=== PATIENT | male | born 1960 ===

== ENCOUNTER → 2019-12-25 11:10 | Outpatient (BNVA) | payer MEDICARE, MEDICAID, SELFPAY | PROVIDERS: PCP Internal Medicine; Referring Provider Internal Medicine; Visit Provider Nurse Practitioner Psychiatric/Mental Health | DX: F11.20 Opioid dependence, uncomplicated (principal) | CPT/HCPCS: 80305; 99214 ==

== ENCOUNTER → 2020-01-01 11:40 | Outpatient (BNVA) | payer MEDICARE, MEDICAID, SELFPAY | PROVIDERS: PCP Internal Medicine; Visit Provider Nurse Practitioner Psychiatric/Mental Health | DX: F11.20 Opioid dependence, uncomplicated (principal) | CPT/HCPCS: 99213 ==

== ENCOUNTER → 2020-01-08 13:02 | Outpatient (BNVA) | payer MEDICARE, MEDICAID, SELFPAY | PROVIDERS: Visit Provider Nurse Practitioner Psychiatric/Mental Health | DX: F11.99 Opioid use, unspecified with unspecified opioid-induced disorder (principal); N40.0 Benign prostatic hyperplasia without lower urinary tract symptoms | CPT/HCPCS: 80305; 99211 ==

== ENCOUNTER 2020-01-15 10:31 | Outpatient (REF) | payer MEDICARE, MEDICAID, SELFPAY ==
[2020-01-19 10:16] LABS: Buprenorphine 39 ng/mL; Norbuprenorphine Negative
== END 2020-01-15 10:32 | disposition home or self-care (01) ==
LOC: HO.LNP 10:31
PROVIDERS: Visit Provider Nurse Practitioner Psychiatric/Mental Health
DX: F11.20 Opioid dependence, uncomplicated (principal)
CPT/HCPCS: 80305; 80348; 99211

== ENCOUNTER 2020-01-22 10:13 | Outpatient (REF) | payer MEDICARE, MEDICAID, SELFPAY ==
[2020-01-26 06:21] LABS: Buprenorphine 38 ng/mL; Norbuprenorphine 8 ng/mL
== END 2020-01-22 10:14 | disposition home or self-care (01) ==
LOC: HO.LNP 10:13
PROVIDERS: Visit Provider Nurse Practitioner Psychiatric/Mental Health
DX: F11.20 Opioid dependence, uncomplicated (principal)
CPT/HCPCS: 80305; 80348; 99212

== ENCOUNTER → 2020-01-29 10:32 | Outpatient (BNVA) | payer MEDICARE, MEDICAID, SELFPAY | PROVIDERS: Visit Provider Nurse Practitioner Psychiatric/Mental Health | DX: F11.20 Opioid dependence, uncomplicated (principal) | CPT/HCPCS: 80305; 80348; 99212 ==

== ENCOUNTER 2020-01-29 17:16 | Outpatient (REF) | payer MEDICARE, MEDICAID, SELFPAY ==
[2020-02-01 11:02] LABS: Buprenorphine Negative; Norbuprenorphine Negative
== END 2020-01-29 17:17 | disposition home or self-care (01) ==
LOC: HO.LNP 17:16
PROVIDERS: Visit Provider Nurse Practitioner Psychiatric/Mental Health
DX: Z13.89 Encounter for screening for other disorder (principal)
CPT/HCPCS: 80348

== ENCOUNTER → 2021-11-25 11:55 | Outpatient (BNVA) | payer MEDICAID, SELFPAY | PROVIDERS: PCP Internal Medicine; Visit Provider Urology | DX: N40.1 Benign prostatic hyperplasia with lower urinary tract symptoms (principal); R35.1 Nocturia; R39.11 Hesitancy of micturition; R35.0 Frequency of micturition | CPT/HCPCS: 51798; 99202 ==

== ENCOUNTER → 2021-12-23 09:29 | Day surgery (SDC) | payer MEDICAID, SELFPAY ==
--- NOTE | 2021-12-22 09:42 | HO.ANESPROP2 ---
HPI - Anesthesia Eval Consult details Narrative: Cx'd +Utox 61yo M for Colonoscopy Suboxone daily PMFSH Active Problems Active Problems: All Active Problems (Updated 12/19/21 @ 12:01 by Jackeline Culp RN) Opioid use disorder (Acute) Nocturia more than twice per night (Acute) Urinary hesitancy (Acute) Benign prostate hyperplasia (Acute) Past Medical History Medical History (Updated 12/19/21 @ 12:01 by Jackeline Culp RN) Benign prostate hyperplasia Bipolar disorder Depression Opioid use disorder PTSD (post-traumatic stress disorder) Family History Family History Father No problems noted. Mother No problems noted. Daughter No problems noted. Daughter No problems noted. Daughter No problems noted. Sister No problems noted. Sister No problems noted. Sister No problems noted. Sister No problems noted. Brother Prostate cancer Brother No problems noted. Brother No problems noted. Brother No problems noted. Brother No problems noted. Brother No problems noted. Surgical History Surgical History (Updated 12/19/21 @ 12:01 by Jackeline Culp RN) History of intestinal surgery S/P foot surgery, left Social History Social History Patient Tobacco Use Status: Former Tobacco user Are you DNR?: No Advance Directives: No Advance Directives Information Provided: Yes Nutrition Risks: No Nutritional Risk Meds Allergies Allergy/AdvReac Type Severity Reaction Status Date / Time haloperidol [From HALDOL] AdvReac Severe Involuntary Verified 12/19/21 12:04 Spasms From SEROQUEL AdvReac Severe Involuntary Uncoded 12/19/21 12:04 Spasms Home Medications Medication Instructions Recorded Confirmed Last Taken Type mirtazapine 45 mg tablet 45 mg PO BEDTIME 12/25/19 12/19/21 12/22/21 History tamsulosin 0.4 mg capsule 1 cap PO DAILY 12/23/21 12/23/21 12/22/21 History Exam Exam Date and Time: December 22, 2021 0985 Assessment and Plan Assessment Anesthesia Assessment: Chart Reviewed
[2021-12-23 09:52] VITALS: BP 132/83; PULSE 73; RESP 18; TEMP 36.6; O2SAT 97; BMI 23.8
--- NOTE | 2021-12-23 10:14 | PC.NURSE ---
pt sts used 2 bags heroin last night anesthesia tigerred and dr sierra aware
[2021-12-23 10:36] LABS: Amphetamine Screen Urine Not Detected (Not Detect); Barbiturates, Urine Not Detected (Not Detect); Benzodiazepines Screen Urine Not Detected (Not Detect); Cannabinoid Screen Urine Not Detected (Not Detect); Cocaine Screen Urine Not Detected (Not Detect); Fentanyl, urine POSITIVE (Not Detect); Opiate Screen Urine POSITIVE (Not Detect); Phencyclidine Screen Urine Not Detected (Not Detect)
--- NOTE | 2021-12-23 10:38 | PC.NURSE ---
pt positive drug screen case cx by anesthesia
== END ==
PROVIDERS: Nurse Practitioner; PCP Internal Medicine; Visit Provider Internal Medicine Gastroenterology
DX: Z12.11 Encounter for screening for malignant neoplasm of colon (principal); Z53.09 Procedure and treatment not carried out because of other contraindication; R79.9 Abnormal finding of blood chemistry, unspecified
CPT/HCPCS: 80307

== ENCOUNTER 2022-01-17 13:01 | Outpatient (REF) | payer MEDICAID, SELFPAY | END 2022-01-17 13:02 | disposition home or self-care (01) | LOC: HO.US 13:01 | PROVIDERS: Visit Provider Urology | DX: Z13.89 Encounter for screening for other disorder (principal) ==

== ENCOUNTER 2022-02-28 14:27 | Outpatient (REF) | payer MEDICAID, SELFPAY ==
--- NOTE | ~2022-02-28 | US_ITS ---
EXAMINATION: US PELVIS LIMITED (BLADDER) CLINICAL INFORMATION: Poor urinary stream. COMPARISON: None TECHNIQUE: Real-time imaging of the bladder. FINDINGS: BLADDER: Well distended and normal. Bilateral ureteral jets are demonstrated. Prevoid bladder volume is 246.0 mL. Postvoid bladder volume is 17.6 mL. ADDITIONAL FINDINGS: The prostate gland is approximately 35 mL in volume with irregular lobulated contour. US/US bladder IMPRESSION: No significant post void residual. Lobular contour of the prostate gland which is seen to cause inferior posterior mass impression on the urinary bladder..
== END 2022-02-28 14:28 | disposition home or self-care (01) ==
LOC: HO.US 14:27
PROVIDERS: Visit Provider Urology
DX: R39.12 Poor urinary stream (principal); N40.0 Benign prostatic hyperplasia without lower urinary tract symptoms
CPT/HCPCS: 76857

== ENCOUNTER → 2022-04-11 14:44 | Outpatient (BNVA) | payer MEDICAID, SELFPAY | PROVIDERS: PCP Internal Medicine; Visit Provider Urology | DX: R35.1 Nocturia (principal); R39.11 Hesitancy of micturition | CPT/HCPCS: 52000; 99212 ==

== ENCOUNTER 2022-10-12 15:09 | Outpatient (REF) | payer MEDICAID, SELFPAY ==
[2022-10-12 17:36] LABS: Prostate Specific Antigen 0.73 ng/mL (<0.05-4.0)
== END 2022-10-12 15:10 | disposition home or self-care (01) ==
LOC: HO.HHCL 15:09
PROVIDERS: Visit Provider Urology
DX: N40.0 Benign prostatic hyperplasia without lower urinary tract symptoms (principal)
CPT/HCPCS: 36415; 84153

== ENCOUNTER 2022-10-17 13:43 | Outpatient (AMB) | payer MEDICAID, SELFPAY ==
--- NOTE | 2022-10-17 13:44 | A.OFFVIS_ITS ---
Intake Intake Visit Reasons: 6M PSA(set) Intake Note: Patient is present for Telephone Urology Med: Terazosin Antibiotic Allergy:None Blood Thinner:none Allergies haloperidol [From HALDOL] Adverse Reaction (Severe, Verified 10/17/22 13:44) Involuntary Spasms From SEROQUEL Adverse Reaction (Severe, Uncoded 10/17/22 13:44) Involuntary Spasms Medication List - Last Reconciled 10/17/22 by Jeffery Doan MD fluoxetine 10 mg PO QAM mirtazapine 45 mg PO BEDTIME olanzapine 2.5 mg PO QAM terazosin 5 mg PO BEDTIME 90 days HPI HPI Comments History of Present Illness Details Niranjan is a pleasant male. He is a patient Dr. Jara. He is seen for the following urologic conditions - lower urinary tract symptoms Telemedicine Evaluation 15 min Consultation Lakala Jone Video attempted Discussed PSA results Has been having some dizziness with terazosin 10 mg Cut back to 5 mg Three month follow-up PVR Lower urinary tract symptoms Initial symptoms with marked nocturia, urgency, hesitancy Placed on Flomax by PCP with some improvement Good response to 10 mg terazosin but dizziness Should cut back on coffee after mid day and fluids in the evening PSA 10/15 0.8 Cystoscopy - 04/17 median lobe Imaging - 04/17 bladder ultrasound 17 cc residual, 40 g gland Family history of both BPH in older brother and prostate cancer with younger brother Therapeutic plan - 3 month follow-up PVR PFSH Medical History Benign prostate hyperplasia Bipolar disorder Depression Opioid use disorder PTSD (post-traumatic stress disorder) Surgical History History of intestinal surgery S/P foot surgery, left Family History Father No problems noted. Mother No problems noted. Daughter No problems noted. Daughter No problems noted. Daughter No problems noted. Sister No problems noted. Sister No problems noted. Sister No problems noted. Sister No problems noted. Brother Prostate cancer Brother No problems noted. Brother No problems noted. Brother No problems noted. Brother No problems noted. Brother No problems noted. Social History Patient Tobacco Use Status: Former Tobacco user Review of Systems Const All systems reviewed & are unremarkable except as noted in HPI and below Reports no additional complaints Resp Reports no additional complaints GI Reports no additional complaints Reports as per HPI Musc Reports no additional complaints Physical Exam Telemedicine evaluation Appropriate responses Regular breathing rate and rhythm HEENT Head: Yes normal to inspection Ears: hearing grossly normal bilaterally Eyes General: appearance normal, both eyes and all related structures Neck Neck: Yes normal visual inspection Chest Chest palpation & inspection: normal inspection of the chest Resp Effort & Inspection: normal respiratory effort and able to speak in complete sentences Assessment & Plan Assessment & Plan (1) Nocturia more than twice per night: Code(s): R35.1 - Nocturia (2) Benign prostate hyperplasia: Code(s): N40.0 - Benign prostatic hyperplasia without lower urinary tract symptoms Plan Three month follow-up PVR Medications: Changed From terazosin One (1) tab at bedtime 10 mg PO BEDTIME 90 caps 1RF 90 days N40.0 - Benign prostatic hyperplasia without lower urinary tract symptoms To terazosin One (1) tab at bedtime 5 mg PO BEDTIME 90 caps 0RF 90 days N40.0 - Benign prostatic hyperplasia without lower urinary tract symptoms Patient Instructions: Imaging studies, laboratory and physical exam results were discussed and reviewed in detail. No major barriers to patient understanding were identified. An opportunity to ask questions regarding the treatment plan was provided. All questions were answered. The patient expressed understanding and agreement with the above treatment plan. The patient is aware they should contact our office by phone for worsening of their current condition or the appearance of new urologic symptoms. Compliance is encouraged with any medications and followup testing that is ordered. It is a privilege to participate in the urologic care of your patient. If you have any questions or concerns regarding treatment for the above conditions, or other urologic issues, please do not hesitate to contact me. The office telephone contact is [phone]. This note is constructed using voice recognition software. While every effort has been made to ensure accuracy typewriter mechanic errors may have been included. Yours sincerely, Dr Jeffery Doan MD, [facility] - Urology Providers of Expert, Compassionate Care for the Genitourinary System Telehealth Telehealth Location of provider rendering services: practice address Location of patient: address on file Patient Identification confirmed using: Name, : Yes Telehealth method: video Patient verbally consented to treatment: Yes Patient verbally consented to billing insurance company: Yes Patient informed of any privacy concerns related to visit: Yes Coding Level of Care Code Tele Est Pt Level 3 (67177) Diagnoses Nocturia more than twice per night R35.1 Benign prostate hyperplasia N40.0
== END 2022-10-17 14:44 | disposition home or self-care (01) ==
LOC: HO.HUSH 13:43
PROVIDERS: PCP Internal Medicine; Visit Provider Urology
DX: R35.1 Nocturia (principal); N40.0 Benign prostatic hyperplasia without lower urinary tract symptoms
CPT/HCPCS: 99213

== ENCOUNTER → 2022-10-17 13:43 | Outpatient (BNVA) | payer MEDICAID, SELFPAY | PROVIDERS: PCP Internal Medicine; Visit Provider Urology ==

== ENCOUNTER 2022-12-05 12:42 | Outpatient (REF) | payer MEDICAID, SELFPAY ==
--- NOTE | ~2022-12-05 | XR_ITS ---
EXAMINATION: XR KNEE, RIGHT CLINICAL INFORMATION: Reason for Exam PAIN COMPARISON: None TECHNIQUE: 3 views of the knee FINDINGS: Age-indeterminate avulsion fracture of the medial tibial spine. Recommend correlation with history of trauma and point tenderness. Mild degenerative changes of the knee with small medial compartment osteophytes.. Trace suprapatellar joint effusion. Soft tissues are unremarkable. XR/XR knee RT 3V IMPRESSION: * Age-indeterminate avulsion fracture of the medial tibial spine. Recommend correlation with history of trauma and point tenderness. * Mild degenerative changes of the knee. Trace suprapatellar joint effusion.
--- NOTE | ~2022-12-05 | XR_ITS ---
EXAMINATION: XR SHOULDER, LEFT CLINICAL INFORMATION: Reason for Exam PAIN COMPARISON: None TECHNIQUE: Four views of the shoulder. FINDINGS: No acute fracture or dislocation. Mild degenerative changes of the acromioclavicular and glenohumeral joints with degenerative spurring. Left apical airspace opacities suboptimally evaluated on these shoulder radiographs possibly reflective of a focus of airways infection if clinical history is appropriate, however recommend relation with dedicated chest radiographs and follow-up to ensure resolution and no underlying lesion. XR/XR shoulder LT min 2V IMPRESSION: * Left apical airspace opacities suboptimally evaluated on these shoulder radiographs possibly reflective of a focus of airways infection if clinical history is appropriate, however recommend relation with dedicated chest radiographs and follow-up to ensure resolution and no underlying lesion. If the patient does not have clinical symptoms of infection, recommend further evaluation contrast-enhanced CT chest rather than radiographs. * Mild degenerative changes of the shoulder. The report will be called to the ordering clinician by a [facility] Physician Revenue Accounting Manager.
--- NOTE | ~2022-12-05 | XR_ITS ---
EXAMINATION: XR LUMBOSACRAL SPINE CLINICAL INFORMATION: Reason for Exam PAIN COMPARISON: None TECHNIQUE: 3 views of the lumbar spine FINDINGS: 5 nonrib-bearing lumbar-type vertebral bodies. Vertebral body heights are maintained. Grade 1 anterolisthesis of L4 on L5. Minimal stepwise grade 1 retrolisthesis of L1 on L2-L3 on L4. Mild to moderate multilevel degenerative disc disease with loss of disc space height and facet arthropathy. Paravertebral soft tissues are unremarkable. XR/XR lumbar spine 2-3V IMPRESSION: * Mild to moderate spondylosis of the lumbar spine, as above detailed. * Spondylolisthesis, as above detailed.
== END 2022-12-05 12:43 | disposition home or self-care (01) ==
LOC: HO.HHCX 12:42
PROVIDERS: Visit Provider Student in an Organized Health Care Education/Training Program
DX: M54.50 Low back pain, unspecified (principal); M25.512 Pain in left shoulder; M25.561 Pain in right knee; G89.29 Other chronic pain
CPT/HCPCS: 72100; 73030; 73562

== ENCOUNTER 2022-12-26 14:51 | Outpatient (REF) | payer MEDICAID, SELFPAY ==
[2022-12-26 16:08] LABS: MANUAL DIFF FLAG NO
[2022-12-26 16:14] LABS: Basophils Percent Auto 0.2 % (0-2); Eosinophils Absolute Auto 0.1 X10*3/uL (0.0-0.4); Eosinophils Percent Auto 2.6 % (0-4); Hematocrit 43.9 % (42.0-52.0); Hemoglobin 13.9 g/dl (14.0-18.0); Imm Gran Abs Auto 0.01 X10*3/uL (0.00-0.03); Imm Gran Pct Auto 0.2 % (0.0-0.4); Lymphocytes Absolute Auto 1.4 X10*3/uL (1.2-4.9); Lymphocytes Percent Auto 27.8 % (20-40); Mean Corpuscular HGB Conc 31.7 g/dl (31.0-36.0); Mean Corpuscular Hemoglobin 27.7 pg (27.0-33.0); Mean Corpuscular Volume 87.5 fL (80.0-98.0); Mean Platelet Volume 11.2 fL (9.4-12.4); Monocytes Absolute Auto 0.5 X10*3/uL (0.1-1.2); Monocytes Percent Auto 10.5 % (2-11); Neutrophils Absolute Auto 2.9 x10*3/uL (2.0-8.3); Neutrophils Percent Auto 58.7 % (45-73); Platelet Count 260 X10*3/uL (160-400); Red Blood Count 5.02 X10*6/uL (4.60-5.80); Red Cell Distribution Width 13.9 % (11.0-16.0)
[2022-12-26 16:47] LABS: Estimated Average Glucose 111 mg/dL; Hemoglobin A1c % 5.5 % (<6.0)
[2022-12-26 16:54] LABS: Alanine Aminotransferase 17 U/L (0-40); Albumin Level 4.2 g/dL (3.5-5.0); Alkaline Phosphatase 108 U/L (39-117); Anion Gap 12 (12-20); Aspartate Amino Transferase 20 U/L (5-37); Bilirubin Total 0.4 mg/dL (0.0-1.0); Blood Urea Nitrogen 17 mg/dL (9-16); Calcium 9.6 mg/dL (8.4-10.2); Carbon Dioxide 26 mmol/L (22-29); Chloride 106 mmol/L (96-108); Cholesterol 247 mg/dL (<200); Estimated Glomerular Filt Rate > 60; Glucose Random 98 mg/dL (60-115); HDL Cholesterol 77 mg/dL (>40); LDL Cholesterol Calculated 151 mg/dL (<100); Potassium 4.5 mmol/L (3.3-5.1); Sodium 139 mmol/L (135-145); Total Protein 7.2 g/dL (6.5-8.0); Triglycerides 95 mg/dL (<150)
[2022-12-26 17:09] LABS: TSH reflex Free T4 0.46 uIU/mL (0.32-4.0)
[2022-12-27 07:54] LABS: Syphilis Screen Nonreactive (Nonreactive)
[2022-12-27 09:33] LABS: HBS Num1 46.97 mIU/mL (0-7.99); HBsAGNum1 0.28 S/CO (0.00-0.99); HIV AB/AG Nonreactive (Nonreactive); HIV Num 1 0.04 S/CO (0.00-0.99); Hepatitis B Core Antibody Nonreactive (Nonreactive); Hepatitis B Surface Antigen Negative (Negative); ~HepC Num1 0.07 S/CO (0.00-0.79); ~Hepatitis B Surface Antibody REACTIVE (Nonreactive); ~Hepatitis C Antibody Nonreactive (Nonreactive)
[2022-12-28 10:45] LABS: Free Prostate Spec Ag 0.2 ng/mL; Percent Free Prostate Spec Ag 25 % (calc) (>25); Prostate Specific Ag Total 0.8 ng/mL (< OR = 4.0)
[2022-12-31 00:09] LABS: VITAMIN D (1,25 OH) D3 25 pg/mL; Vit D (1,25-Dihydroxy) Total 25 pg/mL (18-72); Vitamin D (1,25 OH) D2 <8 pg/mL
== END 2022-12-26 14:52 | disposition home or self-care (01) ==
LOC: HO.HHCL 14:51
PROVIDERS: Visit Provider Student in an Organized Health Care Education/Training Program
DX: Z00.00 Encounter for general adult medical examination without abnormal findings (principal)
CPT/HCPCS: 36415; 80053; 80061; 82652; 83036; 84154; 84443; 85025; 86704; 86706; 86780; 86803; 87340; 87389

== ENCOUNTER 2022-12-27 13:47 | Outpatient (REF) | payer MEDICAID, SELFPAY ==
[2022-12-27 16:47] LABS: Creatinine Urine 163.15 mg/dL; Microalbum/Creatinine Ratio Ur 4.2 ug/mg cr (<30)
== END 2022-12-27 13:48 | disposition home or self-care (01) ==
LOC: HO.HHCL 13:47
PROVIDERS: Visit Provider Student in an Organized Health Care Education/Training Program
DX: Z00.00 Encounter for general adult medical examination without abnormal findings (principal)
CPT/HCPCS: 82043; 82570

== ENCOUNTER 2023-01-09 13:06 | Outpatient (AMB) | payer MEDICAID, SELFPAY ==
--- NOTE | 2023-01-09 13:07 | A.OFFVIS_ITS ---
Intake Intake Visit Reasons: 3m/PVR- call [phone] number Intake Note: Patient is present for Telephone Urology Med: Terazosin Antibiotic Allergy:None Blood Thinner:none Mapping Editor Required: No Accompanied by: Self / Same As Patient Allergies haloperidol [From HALDOL] Adverse Reaction (Severe, Verified 01/09/23 13:08) Involuntary Spasms From SEROQUEL Adverse Reaction (Severe, Uncoded 01/09/23 13:08) Involuntary Spasms Medication List - Last Reconciled 01/09/23 by Jeffery Doan MD fluoxetine 10 mg PO QAM mirtazapine 45 mg PO BEDTIME olanzapine 2.5 mg PO QAM terazosin 5 mg PO BEDTIME 90 days HPI HPI Comments History of Present Illness Details Niranjan is a pleasant male. He is a patient Dr. Jara. He is seen for the following urologic conditions - lower urinary tract symptoms Telemedicine Evaluation 15 min Consultation [employer] Jone Video attempted Review of bladder emptying after reduction and terazosin from 10 mg to 5 mg Lower urinary tract symptoms Initial symptoms with marked nocturia, urgency, hesitancy - nocturia x 4 Placed on Flomax by PCP with some improvement Good response to 10 mg terazosin but dizziness, cut back to 5mg Should cut back on coffee after mid day and fluids in the evening PSA 10/15 0.7, 01/15 0.8 Cystoscopy - 04/17 median lobe Imaging - 04/17 bladder ultrasound 17 cc residual , 40 g gland Family history of both BPH in older brother and prostate cancer with younger brother Therapeutic plan - 6 m f/u PVR PFSH Medical History Opioid use disorder Depression Bipolar disorder PTSD (post-traumatic stress disorder) Benign prostate hyperplasia Surgical History History of intestinal surgery S/P foot surgery, left Family History Father No problems noted. Mother No problems noted. Brother Prostate cancer Social History Patient Tobacco Use Status: Former Tobacco user Review of Systems Const All systems reviewed & are unremarkable except as noted in HPI and below Reports no additional complaints Resp Reports no additional complaints GI Reports no additional complaints Reports as per HPI Musc Reports no additional complaints Physical Exam Telemedicine evaluation Appropriate responses Regular breathing rate and rhythm HEENT Head: Yes normal to inspection Ears: hearing grossly normal bilaterally Eyes General: appearance normal, both eyes and all related structures Neck Neck: Yes normal visual inspection Chest Chest palpation & inspection: normal inspection of the chest Resp Effort & Inspection: normal respiratory effort and able to speak in complete sentences Assessment & Plan Assessment & Plan (1) Nocturia more than twice per night: Code(s): R35.1 - Nocturia (2) Benign prostate hyperplasia: Code(s): N40.0 - Benign prostatic hyperplasia without lower urinary tract symptoms Qualifiers: Lower urinary tract symptom presence: symptoms present Lower urinary tract symptom detail: nocturia Qualified Code(s): N40.1 - Benign prostatic hyperplasia with lower urinary tract symptoms; R35.1 - Nocturia Plan Six month follow-up PVR Medications: Refilled terazosin One (1) tab at bedtime 5 mg PO BEDTIME 90 caps 1RF 90 days N40.0 - Benign prostatic hyperplasia without lower urinary tract symptoms Patient Instructions: Imaging studies, laboratory and physical exam results were discussed and reviewed in detail. No major barriers to patient understanding were identified. An opportunity to ask questions regarding the treatment plan was provided. All questions were answered. The patient expressed understanding and agreement with the above treatment plan. The patient is aware they should contact our office by phone for worsening of their current condition or the appearance of new urologic symptoms. Compliance is encouraged with any medications and followup testing that is ordered. It is a privilege to participate in the urologic care of your patient. If you have any questions or concerns regarding treatment for the above conditions, or other urologic issues, please do not hesitate to contact me. The office telephone contact is [phone]. This note is constructed using voice recognition software. While every effort has been made to ensure accuracy merchandise carrier errors may have been included. Yours sincerely, Dr Jeffery Doan MD, [facility] - Urology Providers of Expert, Compassionate Care for the Genitourinary System Telehealth Telehealth Location of provider rendering services: practice address Location of patient: address on file Patient Identification confirmed using: Name, : Yes Telehealth method: video Patient verbally consented to treatment: Yes Patient verbally consented to billing insurance company: Yes Patient informed of any privacy concerns related to visit: Yes Coding Level of Care Code Est Pt Level 3 (36704) Diagnoses Nocturia more than twice per night R35.1 Benign prostatic hyperplasia with nocturia N40.1; R35.1 Lower urinary tract symptom presence: symptoms present Lower urinary tract symptom detail: nocturia
--- OUTSIDE RECORDS SUMMARY | 2023-01-09 13:08 | XMS_ITS | Patient Health Record ---
Author Name Unknown Organization [facility] Address [address] [place] [address] Care Team Providers Care Nurse School Name Role Phone Harry Jara Primary Care Provider John Callaway Jr Unavailable ALLERGIES No Known Allergies REASON FOR REFERRAL No Information MEDICATIONS Medication SIG (Take, Route, Frequency, Duration) Notes Start Date End Date Status Remeron 30 MG 1 tablet at bedtime Orally Once a day for 30 day(s) Active MiraLax (colon prep) 17 GM/SCOOP mixed with Gatorade or Crystal Light Orally begin at 5:00 p.m. the day before the procedure for 1 day 12/07/2021 Active Flomax 0.4 MG 1 capsule Orally Onc e a day for 30 day(s) Active IMMUNIZATIONS Vaccine Route Administration Date Status Comme nts Influenza Unknown 12/07/2021 Refused SOCIAL HISTORY Tobacco Use: Social History Observation Description Date Details (start date - stop date) Current Smoker NA - NA Sex Assigned At : Social History Observation Description Sex Assigned At Unknown Tobacco Use/Smoking Question Answer Notes Patient is a current smoker Alcohol Screen Question Answer Notes Did you have a drink containing alcohol in the p ast year? No Points 0 Interpretation Negative PROBLEMS Problem Type ICD Code Onset Dates Problem Status W/U Status Risk SNOMED Code Notes Problem Encounter for screening for malignant neoplasm of colon (Z12.11) Active confirmed [id number] PLAN OF TREATMENT Future Test Test Name Order Date COLONOSCOPY 12/07/2021 Insurance Providers Payer Name Payer Address Payer Phone Subscriber Number Group Number Insured Name Patient Relationship to Insured Coverage Start Date Coverage End Date MEDICA[employer] OF [employer] [address] [place] [address] [id number] EVELYN MCKENNA Self - patient is the insured MEDICAL (GENERAL) HISTORY Medical History History ICD Code Hypertension BPH Opiate dependence Anxiety/depression Insomnia Surgical History Surgery Date(Month/Year) [place] [address]
== END 2023-01-09 14:51 | disposition home or self-care (01) ==
LOC: HO.HUSH 13:06
PROVIDERS: PCP Internal Medicine; Visit Provider Urology
DX: N40.1 Benign prostatic hyperplasia with lower urinary tract symptoms (principal); R35.1 Nocturia
CPT/HCPCS: 99213

== ENCOUNTER 2023-01-19 10:48 | Outpatient (AMB) | payer MEDICAID, SELFPAY ==
--- NOTE | 2023-01-19 11:00 | A.OFFVIS_ITS ---
Intake Intake Visit Reasons: MANAGER SQL-chronic right knee pain Intake Note: Niranjan is a 62 year old male who presents today as a new patient for a evaluation for his right knee pain. Patient reports ongoing pain for 6 months with no previous treatment. He states that his pain feels like its in the inside of his knee. Pain is worse when going down the stairs. Allergies haloperidol [From HALDOL] Adverse Reaction (Severe, Verified 01/19/23 11:12) Involuntary Spasms From SEROQUEL Adverse Reaction (Severe, Uncoded 01/09/23 13:08) Involuntary Spasms HPI MANAGER SQL-chronic right knee pain HPI Details 62-year-old male who presents in the off ice today, as a new patient, for an evaluation of right knee pain. The patient reports ongoing pain for 6 months with no previous treatment. He states his pain feels like it is in the inside of the right knee. He confirms his pain is worse when going down stairs. [facility] Medical History Opioid use disorder Depression Bipolar disorder PTSD (post-traumatic stress disorder) Benign prostate hyperplasia Surgical History History of intestinal surgery S/P foot surgery, left Family History Father No problems noted. Mother No problems noted. Brother Prostate cancer Social History Patient Tobacco Use Status: Former Tobacco user Review of Systems Const All systems reviewed & are unremarkable except as noted in HPI and below Physical Exam Const General: cooperative, healthy appearing and no acute distress Orientation/consciousness: patient oriented x3 Resp Effort & Inspection: normal respiratory effort and able to speak in complete sentences Cardio Rate: regular rate Peripheral pulses: Peripheral pulses 2+ throughout GI Palpation (GI): Soft to palpation Skin General skin exam: no rashes or lesions noted Lesions: no lesions Rashes: no rashes Neuro General: patient oriented x3 Extrem Other: Right knee: Normal to inspection. No ecchymosis, erythema, or joint effusion. No tenderness to palpation to the medial or lateral joint lines. Full knee extension and flexion. Negative Kenyon's. Mild crepitus felt with ROM. NVI. Left shoulder: Normal to inspection. No ecchymosis, erythema, or edema. Forward flexion lacking about 10 degrees. Abduction lacking about 20 degrees. Negative cross-body reach. Negative empty can. Negative drop arm. NVI. Assessment & Plan Assessment & Plan (1) Painful arc syndrome of left shoulder: Code(s): M75.102 - Unspecified rotator cuff tear or rupture of left shoulder, not specified as traumatic (2) Arthritis of right knee: Code(s): M17.11 - Unilateral primary osteoarthritis, right knee Plan Mr. Cong Webster is a 62-year-old male who presents in the office today, as a new patient, for an evaluation of right knee pain. The patient reports ongoing pain for 6 months with no previous treatment. He states his pain feels like it is in the inside of the right knee. He confirms his pain is worse when going down stairs. I discussed the role of cortisone injections with the patient while in the office today. He would like to hold off at this time. He will be referred to physical therapy to work on his right knee and left shoulder. He was also offered a genumed knee brace, off the shelf, while in the office today. Follow up will be PRN, or sooner if needed. X-rays of the right knee obtained while in the office today and reviewed by me, Iman Corbett PA-C, revealed mild degenerative changes. Orders: Orders XR knee standing BI Today M25.569 - Pain in unspecified knee PT Evaluation and Treatment Today M75.102 - Unspecified rotator cuff tear or rup ture of left shoulder, not specified as traumatic XR knee RT 1V Today M25.569 - Pain in unspecified knee PT Evaluation and Treatment Today M17.11 - Unilateral primary osteoarthritis, right knee Patient Instructions: Scribed for Iman Corbett PA-C by Sushma Waters director medical writing, on 01/19/2023 at 10:52 am, EST. Coding Level of Care Code New Pt Level 4 (57382) Diagnoses Painful arc syndrome of left shoulder M75.102 Arthritis of right knee M17.11
== END 2023-01-19 11:29 | disposition home or self-care (01) ==
PROVIDERS: PCP Internal Medicine; Visit Provider Physician Assistant
DX: M75.102 Unspecified rotator cuff tear or rupture of left shoulder, not specified as traumatic (principal); M17.11 Unilateral primary osteoarthritis, right knee
CPT/HCPCS: 99204

== ENCOUNTER 2023-01-19 16:47 | Outpatient (REF) | payer MEDICAID, SELFPAY ==
--- NOTE | ~2023-01-19 | XR_ITS ---
EXAMINATION: XR KNEE, AP STANDING, BILATERAL XR KNEE, RIGHT CLINICAL INFORMATION: Pain in unspecified knee. COMPARISON: 12/05/2002. TECHNIQUE: AP bilateral standing view of the knees and sunrise view of the left knee. FINDINGS: Right Knee: Mild degenerative changes with small medial marginal osteophytes. Redemonstration of ossific densities along the lateral tibial spines, better characterized on the prior exam, and felt to possibly represent an age-indeterminate avulsion fracture. A nondisplaced possible avulsion fracture of the medial tibial spine is less likely. XR/XR knee RT 1V IMPRESSION: Mild degenerative changes right knee. Redemonstration of ossific densities along the lateral tibial spines, better characterized on the prior exam, and felt to possibly represent an age-indeterminate avulsion fracture. This was better characterized on the prior exam. A nondisplaced possible avulsion fracture of the medial tibial spine is less likely.
--- NOTE | ~2023-01-19 | XR_ITS ---
EXAMINATION: XR KNEE, AP STANDING, BILATERAL XR KNEE, RIGHT CLINICAL INFORMATION: Pain in unspecified knee. COMPARISON: 12/05/2002. TECHNIQUE: AP bilateral standing view of the knees and sunrise view of the left knee. FINDINGS: Right Knee: Mild degenerative changes with small medial marginal osteophytes. Redemonstration of ossific densities along the lateral tibial spines, better characterized on the prior exam, and felt to possibly represent an age-indeterminate avulsion fracture. A nondisplaced possible avulsion fracture of the medial tibial spine is less likely. XR/XR knee standing BI IMPRESSION: Mild degenerative changes right knee. Redemonstration of ossific densities along the lateral tibial spines, better characterized on the prior exam, and felt to possibly represent an age-indeterminate avulsion fracture. This was better characterized on the prior exam. A nondisplaced possible avulsion fracture of the medial tibial spine is less likely.
== END 2023-01-19 16:48 | disposition home or self-care (01) ==
LOC: HO.HOSX 16:47
PROVIDERS: Visit Provider Physician Assistant
DX: M75.102 Unspecified rotator cuff tear or rupture of left shoulder, not specified as traumatic (principal); M17.11 Unilateral primary osteoarthritis, right knee
CPT/HCPCS: 73560; 73565; 99212

== ENCOUNTER 2023-05-16 15:03 | Outpatient (AMB) | payer MEDICAID, SELFPAY ==
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
[2023-05-16 15:17] VITALS: BP 117/69; PULSE 75; BMI 27.3
== END 2023-05-16 16:15 | disposition home or self-care (01) ==
PROVIDERS: PCP Internal Medicine; Visit Provider Nurse Practitioner
DX: Z01.818 Encounter for other preprocedural examination (principal); F11.99 Opioid use, unspecified with unspecified opioid-induced disorder; F17.200 Nicotine dependence, unspecified, uncomplicated
CPT/HCPCS: 99203

== ENCOUNTER → 2023-05-16 15:03 | Outpatient (BNVA) | payer MEDICAID, SELFPAY | PROVIDERS: PCP Internal Medicine; Visit Provider Nurse Practitioner | DX: Z01.818 Encounter for other preprocedural examination (principal); F11.20 Opioid dependence, uncomplicated; F17.200 Nicotine dependence, unspecified, uncomplicated | CPT/HCPCS: 99212 ==

== ENCOUNTER 2023-09-14 09:01 | Outpatient (AMB) | payer MEDICAID, SELFPAY ==
--- NOTE | 2023-09-14 09:02 | A.OFFVIS_ITS ---
Intake Visit Reasons: 6m/PVR Intake Note: Pt presents to the office today for a 6 month PVR. PVR-11ml Urology Med: Terazosin Antibiotic Allergy:None Blood Thinner:Aspirin Maintenance Technician Required: No Accompanied by: Self / Same As Patient Allergies haloperidol [From HALDOL] Adverse Reaction (Severe, Verified 09/14/23 09:03) Involuntary Spasms From SEROQUEL Adverse Reaction (Severe, Uncoded 09/14/23 09:03) Involuntary Spasms HPI Comments Details: Niranjan is a pleasant male. He is a patient Dr. Jara. He is seen for the following urologic conditions - lower urinary tract symptoms Six-month follow-up PVR 10 cc Has been using terazosin 5 mg Good response 12 month follow-up PSA Lower urinary tract symptoms Initial symptoms with marked nocturia, urgency, hesitancy - nocturia x 4 Placed on Flomax by PCP with some improvement Good response to 10 mg terazosin but dizziness, cut back to 5mg Should cut back on coffee after mid day and fluids in the evening PSA 10/15 0.7, 01/15 0.8 Cystoscopy - 04/17 median lobe Imaging - 04/17 bladder ultrasound 17 cc residual, 40 g gland Family history of both BPH in older brother and prostate cancer with younger brother [facility] Medical History (Updated 05/16/23 @ 16:11 by LUDMILA Everett) Opioid use disorder Depression Bipolar disorder PTSD (post-traumatic stress disorder) Benign prostate hyperplasia Surgical History History of intestinal surgery S/P foot surgery, left Family History Father No problems noted. Mother No problems noted. Brother Prostate cancer Social History Patient Tobacco Use Status: Former Tobacco user Review of Systems Const Denies chills and Denies fever(s) Card Reports no additional complaints and Denies syncope Resp Denies cough GI Denies abdominal pain and Denies heartburn Reports as per HPI and Denies change in libido Neuro Denies syncope Psych Denies change in libido Endo Denies change in libido Physical Exam Const General: cooperative, healthy appearing, comfortable and no acute distress Orientation/consciousness: patient oriented x3 HEENT Face and sinus: Yes normal facial exam Mouth: moist mucous membranes Neck Neck: Yes normal visual inspection, Yes full ROM and Yes trachea midline Chest Chest palpation & inspection: normal inspection of the chest Resp Effort & Inspection: normal respiratory effort, able to speak in complete sentences and no respiratory distress GI Inspection: Yes normal to inspection Back/Spine/Pelvis Cervical Spine: normal cervical lordosis Thoracic/Lumbar Spine: thoracic and lumbar spine normal to inspection Skin General skin exam: no rashes or lesions noted Neuro General: patient oriented x3, gait normal, tone normal and moves all extremities Extrem General: Yes normal to inspection and Yes capillary refill normal Assessment & Plan Assessment & Plan (1) Nocturia more than twice per night: Code(s): R35.1 - Nocturia Category: Medical (2) Urinary hesitancy: Code(s): R39.11 - Hesitancy of micturition Category: Medical (3) Benign prostate hyperplasia: Code(s): N40.0 - Benign prostatic hyperplasia without lower urinary tract symptoms Category: Medical Qualifiers: Lower urinary tract symptom presence: symptoms present Lower urinary tract symptom detail: nocturia Qualified Code(s): N40.1 - Benign prostatic hyperplasia with lower urinary tract symptoms; R35.1 - Nocturia Plan Twelve month follow-up Orders: Orders Prostate Specific Antigen 364 Days R39.11 - Hesitancy of micturition Patient Instructions: Imaging studies, laboratory and physical exam results were discussed and reviewed in detail. No major barriers to patient understanding were identified. An opportunity to ask questions regarding the treatment plan was provided. All questions were answered. The patient expressed understanding and agreement with the above treatment plan. The patient is aware they should contact our office by phone for worsening of their current condition or the appearance of new urologic symptoms. Compliance is encouraged with any medications and followup testing that is ordered. It is a privilege to participate in the urologic care of your patient. If you have any questions or concerns regarding treatment for the above conditions, or other urologic issues, please do not hesitate to contact me. The office telephone contact is [phone]. This note is constructed using voice recognition software. While every effort has been made to ensure accuracy diamond powder technician errors may have been included. Yours sincerely, Dr Jeffery Doan MD, [facility] - Urology Providers of Expert, Compassionate Care for the Genitourinary System Coding Level of Care Code Est Pt Level 3 (41450) Diagnoses Nocturia more than twice per night R35.1 Urinary hesitancy R39.11 Benign prostatic hyperplasia with nocturia N40.1; R35.1 Lower urinary tract symptom presence: symptoms present Lower urinary tract symptom detail: nocturia
== END 2023-09-14 09:27 | disposition home or self-care (01) ==
PROVIDERS: Visit Provider Urology
DX: N40.1 Benign prostatic hyperplasia with lower urinary tract symptoms (principal); R35.1 Nocturia; R39.11 Hesitancy of micturition
CPT/HCPCS: 99213

== ENCOUNTER → 2023-09-14 09:01 | Outpatient (BNVA) | payer MEDICAID, SELFPAY | PROVIDERS: Visit Provider Urology | DX: N40.1 Benign prostatic hyperplasia with lower urinary tract symptoms (principal); N13.8 Other obstructive and reflux uropathy; R35.1 Nocturia; R39.11 Hesitancy of micturition | CPT/HCPCS: 51798; 99212 ==

== ENCOUNTER 2024-08-29 12:11 | Outpatient (REF) | payer MEDICAID, SELFPAY ==
--- OUTSIDE RECORDS SUMMARY | 2024-08-29 12:33 | XMS_ITS | Encounter Summary ---
Author Organization [employer] Address [address] [place] [address] Care Team Providers Care Community Relations Officer Name Role Phone Bisi Kerr MD Primary Care Pro vider Shad Baeza PharmD Unavailable [phone] Reason for Visit * Reason Comments Pre-visit Planning SDOH negative. Tobac co screening positive. Encounter Details Date Type Department Care Team ([facility] st Contact Info) Description 08/28/2024 Patient Outreach [facility] [address] [place] [address] Bisi Kerr MD [address] [place] [address] Pre-visit Planning (SDOH negative. Tobacco screening positive. ) Social History Tobacco Use Types Packs/Day Years Used Date Smoking Tobacco: Every Day Cigarettes 0.5 33 Passive Smoke Exposure: Current Comments:Smokes since 29 y o f age until now -in average 10 cig a day--PQT year calc 16.5 Alcohol Use Standard Drinks/Week Comments Never 0 (1 standard drink = 0.6 oz pur e alcohol) Alcohol Answer Date Recorded Frequency of Alcohol Consumption Not on file 01/25/2024 Average Number of Drinks Not on file 024 Frequency of Binge Drinking Not on file 03/2023 Score 1 01/25/2024 Depression Answer Date Recorded Patient Health Questionnaire-9 Score 2 12/05/2022 Housing Stability Answer Date Recorded What is your housing situation today? I have duarte shay 08/28/[address] you li ve. Do you have problems with any of the following? None of the above 08/28/2024 Food Insecurity Answer Date Recorded Within the past 12 months, y ou worried that your food would run out before you got money to buy more: Never True 08/28/2024 Within the past 12 months,th e food you bought just didn't last and you didn't have enough money to get more: Never True 07/2024 Transportation Answer Date Recorded In the past 12 months, has l ack of transportation kept you from medical appts, meetings, work or from getting things needed for daily living? No 08/28/2024 Utilities Answer Date Recorded In the past 12 months, has t he [employer], gas, oil or water [employer] threatened to shut off services in your home? No 08/28/2024 Depression Answer Date Recorded Patient Health Questionnaire-2 Score 2 12/05/2022 Internet Access Answer Date Recorded Internet Access Q1 Yes 08/28/2024 Internet Access Q2 Not on file 08/28/2024 Sex and Gender Information Value Date Recorded Sex Assigned at Male 01/23/2022 10:14 AM EDT Legal Sex Male 10:14 AM EDT Gender Identity Male 01/23/2022 10:14 AM EDT Sexual Orientation Straight 12/05/2022 11 :01 AM EDT documented as of this encounter Progress Notes * Blessing Tran - 08/28/2024 1:37 PM EDT CC Blessing Jones placed successful outbound call to patient for pre-visit planning. Patient name and confirmed. Patient confirms appt date and time, and has transportation arrangements. Biggest concern for appointment at this time is no concerns. Appropriate screenings completed in anticipation ofappointment. documented in this encounter Plan of Treatment Upcoming Encounters Date Type Department Care Team (Late st Contact Info) Description 09/04/2024 1:15 PM EDT Office Visit [facility] [address], [place] [phone] Bisi Kerr MD [address], [place] [phone] documented as of this encounter Visit Diagnoses Not on filedocumented in this encounter Additional Health Concerns Assessment Noted Time PHQ-9 Depression Total Score: 2 12/06/19 10:24 AM EDT documented as of this encounter Care Teams Community Relations Officer Relationship Specialty Start Date End Date Bisi Kerr MD [address] [place] [address] [phone] PCP - General Internal Medicine 07/07/22 Shad Baeza PharmD [address] [place] [id number] Pharmacist Internal Medicine 06/07/23 documented as of this encounter
[2024-08-29 13:26] LABS: MANUAL DIFF FLAG NO
[2024-08-29 13:40] LABS: Basophils Percent Auto 0.4 % (0-2); Eosinophils Absolute Auto 0.1 X10*3/uL (0.0-0.4); Eosinophils Percent Auto 2.4 % (0-4); Hematocrit 38.5 % (42.0-52.0); Hemoglobin 12.4 g/dl (14.0-18.0); Imm Gran Abs Auto 0.02 X10*3/uL (0.00-0.03); Imm Gran Pct Auto 0.4 % (0.0-0.4); Lymphocytes Absolute Auto 1.4 X10*3/uL (1.2-4.9); Lymphocytes Percent Auto 27.6 % (20-40); Mean Corpuscular HGB Conc 32.2 g/dl (31.0-36.0); Mean Corpuscular Hemoglobin 28.1 pg (27.0-33.0); Mean Corpuscular Volume 87.1 fL (80.0-98.0); Mean Platelet Volume 11.1 fL (9.4-12.4); Monocytes Absolute Auto 0.6 X10*3/uL (0.1-1.2); Monocytes Percent Auto 10.8 % (2-11); Neutrophils Percent Auto 58.4 % (45-73); Platelet Count 250 X10*3/uL (160-400); Red Blood Count 4.42 X10*6/uL (4.60-5.80); Red Cell Distribution Width 13.7 % (11.0-16.0); White Blood Count 5.1 X10*3/uL (4.8-10.8)
[2024-08-29 14:24] LABS: Alanine Aminotransferase 20 U/L (0-40); Albumin Level 4.2 g/dL (3.5-5.0); Alkaline Phosphatase 108 U/L (39-117); Anion Gap 9 (12-20); Aspartate Amino Transferase 23 U/L (5-37); Bilirubin Total 0.3 mg/dL (0.0-1.0); Blood Urea Nitrogen 23 mg/dL (9-16); Calcium 9.1 mg/dL (8.4-10.2); Carbon Dioxide 31 mmol/L (22-29); Chloride 106 mmol/L (96-108); Cholesterol 212 mg/dL (<200); Estimated Glomerular Filt Rate > 60; Ferritin 85 ng/mL (20-250); Glucose Random 93 mg/dL (60-115); HDL Cholesterol 72 mg/dL (>40); Iron 77 mcg/dL (45-160); LDL Cholesterol Calculated 127 mg/dL (<100); Percent Iron Saturation 25 % (15-50); Potassium 4.7 mmol/L (3.3-5.1); Sodium 141 mmol/L (135-145); Total Iron Binding Capacity 306 mcg/dL (228-428); Triglycerides 69 mg/dL (<150); Unsaturated Iron Binding 229 ug/dL
== END 2024-08-29 12:12 | disposition home or self-care (01) ==
LOC: HO.HHCL 12:11
PROVIDERS: Visit Provider Student in an Organized Health Care Education/Training Program
DX: D50.9 Iron deficiency anemia, unspecified (principal); E78.5 Hyperlipidemia, unspecified
CPT/HCPCS: 36415; 80053; 80061; 82728; 83540; 85025

== ENCOUNTER 2024-09-16 13:05 | Outpatient (REF) | payer MEDICARE, MEDICAID, SELFPAY ==
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
== END 2024-09-16 13:06 | disposition home or self-care (01) ==
LOC: HO.HHCL 13:05
PROVIDERS: PCP Student in an Organized Health Care Education/Training Program; Visit Provider Urology
DX: Z12.5 Encounter for screening for malignant neoplasm of prostate (principal); R39.11 Hesitancy of micturition
CPT/HCPCS: 36415; 84153

== ENCOUNTER 2024-12-09 12:19 | Emergency (ER) | payer MEDICARE, MEDICAID, SELFPAY ==
--- NOTE | ~2024-12-09 | CT_ITS ---
EXAMINATION: CT ABDOMEN AND PELVIS WITH CONTRAST CLINICAL INFORMATION: Right lower quadrant abdominal pain. COMPARISON: None available. TECHNIQUE: Multidetector volumetric images were obtained from the superior aspect of the liver through the pubic symphysis following administration 85 mL of Omnipaque 350 intravenous contrast. Sagittal and coronal reformatted images were obtained on the technologist's workstation. Oral contrast: No This CT examination was performed using dose optimization techniques as appropriate, variously including the following: *Automated exposure control *Adjustment of mA and/or kV according to patient size (this includes techniques or standardized protocols for targeted exams where dose is matched to indication/reason for exam; i.e. extremities or head) *Use of iterative reconstruction technique FINDINGS: LUNG BASES: Patchy dependent opacities in both lower lobe suggestive of gravity dependent atelectasis. Focal tree-in-bud opacities in the subpleural left lower lobe suspicious for infectious etiology. No effusions. Normal heart size. No pericardial effusion. LIVER, GALLBLADDER, AND BILIARY TREE: The liver is normal in size, shape, and attenuation. No focal hepatic lesion or biliary ductal dilatation is present. The gallbladder is unremarkable with no evidence of radiopaque gallstones, gallbladder wall thickening, or obvious pericholecystic inflammatory changes. Probable adenomyomatosis of the fundus. PANCREAS: Unremarkable. SPLEEN: Unremarkable. ADRENAL GLANDS: There are 2 subcentimeter nodules in the left adrenal lateral clemente, statistically most likely adenomas. Mild hyperplasia of the right adrenal. KIDNEYS AND URETERS: The right kidney demonstrates to 3 mm nonobstructing calculi in the upper pole. There is a 1.7 cm cyst in the mid to upper pole. There are additional tiny cysts present. There is no hydronephrosis or mass present. The proximal right ureter is normal. The left kidney demonstrates a few scattered tiny subcentimeter cysts. No hydronephrosis or mass. No calculi. The proximal left ureter is normal. BLADDER: Underdistended but unremarkable in appearance. GASTROINTESTINAL TRACT: Normal appendix visualized. The stomach, duodenum, and small bowel appear normal. No wall thickening or inflammation identified. The colon demonstrates a few scattered diverticula. No wall thickening or inflammation evident. Mild submucosal fat deposition in the right hemicolon is noted, nonspecific. This can be seen in the setting of obesity, steroid use, and prior bouts of colonic inflammation. There is no rectal abnormality. PERITONEUM: No free air or ascites. ABDOMINAL WALL: Tiny fat-containing left inguinal hernia. LYMPH NODES: No abnormal lymphadenopathy present. VASCULAR: There is mild calcific atheromatous disease of the aorta and iliac arteries. There is no aneurysm. PELVIC VISCERA: The prostate is enlarged, with diameter of 4.4 cm and protrusion of the median lobe into the bladder base. Seminal vesicles appear normal.. OSSEOUS STRUCTURES: No suspicious lytic or blastic bone lesions. Calcific enthesopathy of the bilateral hamstring tendons. Chondrocalcinosis in both hip joints with associated mild to moderate degenerative arthrosis. Moderate degenerative spondylosis of the imaged spine. Grade 1 sp[address]olisthesis L4 on L5. CT/CT abdomen pelvis w IV con IMPRESSION: 1. Findings suspicious for left lower lobe pneumonia. Recommend correlation with clinical presentation. 2. No definite acute findings in the abdomen or pelvis. 3. Numerous ancillary findings as discussed in the body of the report. Electronically signed by: Aashish Collado MD 12/09/2024 02:43 PM EDT
[2024-12-09 12:25] VITALS: BP 134/76; PULSE 88; O2SAT 97
[2024-12-09 12:30] VITALS: PULSE 67; RESP 20; TEMP 36.8; O2SAT 100; BMI 25.3
[2024-12-09 12:36] VITALS: BP 132/78
--- NOTE | 2024-12-09 12:39 | ED_ITS ---
HPI - General Adult General Chief complaint: General Medical Stated complaint: ABD PAIN,N/V PER EMS Time Seen by Provider: 12/09/24 12:39 Source: patient and EMS Mode of arrival: EMS Limitations: no limitations History of Present Illness ED Provider: Gaby Mendoza PA-C HPI narrative: Patient is a 64 year old assigned male at with a history of OUD (sniffs heroin), arthritis, and BPH presenting to the emergency department today with abdominal pain. Patient states that he hasn't used since yesterday and he is having abdominal pain. Patient states that he is nauseous. Patient denies any other complaints at this time. Related Data Home Medications ?Medication ?Instructions ?Recorded ?Confirmed mirtazapine 45 mg tablet 45 mg PO BEDTIME 12/25/19 fluoxetine 10 mg capsule 10 mg PO QAM 04/11/22 olanzapine 2.5 mg tablet 2.5 mg PO QAM 04/11/2201/09 aspirin 81 mg chewable tablet 1 tab PO QAM 05/16/23 atorvastatin 10 mg tablet 10 mg PO QAM 05/16/23 cholecalciferol (vitamin D3) 25 25 mcg PO QAM 05/16/23 mcg (1,000 unit) tablet Previous Rx's ?Medication ?Instructions ?Recorded terazosin 5 mg capsule 5 mg PO BEDTIME 90 days #90 caps 09/01/24 doxycycline hyclate 100 mg tablet 100 mg PO BID 7 days #14 tabs 12/09/24 Allergies Allergy/AdvReac Type Severity Reaction Status Date / Time haloperidol (From HALDOL) AdvReac Severe Involuntary Verified 12/09/24 12:34 Spasms From SEROQUEL AdvReac Severe Involuntary Uncoded 12/09/24 12:34 Spasms Review of Systems 2 Constitutional: Constitutional: Reports as per HPI Eyes: Eyes: Reports as per HPI ENT: Reports as per HPI Cardiovascular: Cardiovascular: Reports as per HPI Respiratory: Respiratory: Reports as per HPI Gastrointestinal: Gastrointestinal: Reports as per HPI Genitourinary: Genitourinary: Reports as per HPI Musculoskeletal: Musculoskeletal: Reports as per HPI Integumentary/Breasts: Skin/Breast: Reports as per HPI Neurologic: Reports as per HPI Psychiatric: Psychiatric: Reports as per HPI Endocrine: Endocrine: Reports as per HPI Hematologic/Lymphatic: Hematologic/Lymphatic: Reports as per HPI Allergic/Immunologic: Allergic/Immunologic: Reports as per HPI [facility] Past Medical History Attestation statement: The following information was validated with the patient. Source: old records reviewed and nursing notes reviewed Medical History Opioid use disorder Depression Bipolar disorder PTSD (post-traumatic stress disorder) Benign prostate hyperplasia Surgical History History of intestinal surgery S/P foot surgery, left Family History Family History Father No problems noted. Mother No problems noted. Brother Prostate cancer Social History Social History Patient Tobacco Use Status: Former Tobacco user Physical Exam ED Vital Signs: Vital Signs - 24 hr 12/09/24 12:30 12/09/24 12:36 12/09/24 13:00 Temperature 98.2 F Pulse Rate 67 Respiratory Rate 20 20 Blood Pressure 132/78 Pulse Oximetry 100 Oxygen Delivery Method Room Air Room Air Oxygen Flow Rate 12/09/24 13:08 12/09/24 16:30 Temperature 98.3 F Pulse Rate 58 72 Respiratory Rate 16 16 Blood Pressure 129/76 118/72 Pulse Oximetry 94 97 Oxygen Delivery Method Nasal Cannula Room Air Oxygen Flow Rate 2 BMI result Body Mass Index 25.3 Const General: cooperative, no acute distress, alert and awake Nutritional Appearance: well nourished Orientation/consciousness: patient oriented x3 HENMT Head: Yes normal to inspection and Yes atraumatic Ears: hearing grossly normal bilaterally and external ears normal General nose exam: Normal external nose present, no nasal discharge noted and no epistaxis Face and sinus: Yes normal facial exam, No abrasion and No laceration Mouth: Normal oral and palatal mucosa present, no drooling and no muffled voice Eyes General: appearance normal, both eyes and all related structures Periorbital: periorbital findings normal Eyelids: Yes eyelids normal Conjunctivae: conjunctivae normal Pupils: Equal, round and reactive pupils present EOM: EOMs intact bilaterally Neck Neck: Yes normal visual inspection and Yes full ROM Resp Effort & Inspection: normal respiratory effort and able to speak in complete sentences GI Palpation (GI): Soft to palpation, not firm, Tenderness to palpation present (GI), no guarding and not rigid Neuro General: patient oriented x3, moves all extremities and CN's II-XI intact bilaterally Cranial nerves: Yes Equal, round and reactive pupils present Cognition (Neuro): normal cognition Extrem General: Yes normal to inspection, Yes full ROM and Yes capillary refill normal Psych Appearance: grossly normal Mental Status: mental status grossly normal Affect: normal affect Attitude: cooperative Thought process: Normal thought process present Thought content: Normal thought content present Insight: Good insight present (Psych) Medications Administered Discontinued Medications Generic Name Dose Route Start Last Admin Trade Name Freq PRN Reason Stop Dose Admin Ceftriaxone Sodium 1 gm 12/09/24 14:50 12/09/24 15:39 Ceftriaxone Sodium 1 Gm Vial IVPUSH 12/09/24 14:51 1 gm ONCE ONE Administration Diazepam 2.5 mg 12/09/24 12:42 12/09/24 13:00 Diazepam 10 Mg/2 Ml Cartridge IVPUSH 12/09/24 12:43 2.5 mg STAT STA Administration Diphenhydramine HCl 50 mg 12/09/24 14:01 12/09/24 14:18 Diphenhydramine Hcl 50 Mg/Ml Vial IVPUSH 12/09/24 14:02 50 mg ONCE ONE Administration Hydromorphone HCl 0.5 mg 12/09/24 12:42 12/09/24 13:00 Hydromorphone Hcl 0.5 Mg/0.5 Ml Syringe IVPUSH 12/09/24 12:43 0.5 mg ONCE ONE Administration Protocol Magnesium Sulfate/Dextrose 1 gm in 100 mls @ 100 mls/hr 12/09/24 12:48 12/09/24 14:01 Magnesium Sulfate/D5w IV 12/09/24 13:47 Infused ONCE ONE Infusion Iohexol 100 ml 12/09/24 14:06 12/09/24 14:07 Iohexol 350 Mg/Ml 100 Ml Infus..Btl IV 12/09/24 14:07 85 ml ONCE ONE Administration Methadone HCl 30 mg 12/09/24 15:09 12/09/24 15:38 Methadone Hcl 20 Mg/2 Ml Oral.Conc PO 12/09/24 15:10 30 mg ONCE ONE Administration Naloxone HCl 8 mg 12/09/24 15:50 12/09/24 16:27 Naloxone Hcl Nasal Take Home 4 Mg [place] NOSTRILALT 12/09/24 15:51 8 mg ONCE ONE Administration Ondansetron HCl 4 mg 12/09/24 12:48 12/09/24 13:00 Ondansetron Hcl 4 Mg/2 Ml Vial IVPUSH 12/09/24 12:49 4 mg ONCE ONE Administration Medical Decision Making Medical Decision Making [facility] Narrative: Patient is a 64 year old assigned male at with a history of OUD (sniffs heroin), arthritis, and BPH presenting to the emergency department today with abdominal pain. Patient's physical exam was as noted in the physical exam portion of this note. Patient's blood work was unremarkable. Patient's EKG was unremarkable. Patient's CT abd/pelvis showed no acute intrabdominal process but did show a possible left lower lobe pneumonia. Patient was given valium, dilaudid, and zofran which he stated helped his symptoms some. Patient's clinical presentation is most consistent with acute opiate withdrawal however, given the patient's recent vomiting, will treat PNA. I consulted with the recovery team who ordered the patient 30mg of Methadone which he stated helped his symptoms significantly. I explained my physical exam findings as well as all test results to the patient. I answered all questions asked by the patient. I stressed the importance of the patient taking his medication as directed (either prescribed or as the over the counter packaging recommends). I stressed the importance of the patient following up with his primary care provider. I stressed the importance of the patient returning to the emergency department immediately if his symptoms were to worsen or if he were to develop any dizziness, shortness of breath, difficulty breathing, chest pain, blurry vision, loss of vision, nausea, vomiting, abdominal pain, fever, chills, back pain, or any other complaints. Patient verbalized agreement and understanding with this treatment plan and discharge. Differential Diagnosis Differential Diagnoses: The differential diagnosis associated with the presentation includes Opiate withdrawal Abdominal pain Nausea Vomiting PNA Admission/Observation Consideration of admission/observation: Escalation of care including admission/observation considered Patient would have been admitted to the hospital had his work up had any findings where hospital admission was appropriate and his clinical presentation warranted hospital admission. Consult Healthcare Provider Management of the patient was discussed with: Account Services Analyst (consulted with the recovery team as noted in the [facility] Rationale portion of this note. ) Lab Data [facility] Lab Attestation statement: I reviewed the patient's lab results. My interpretation of these results are in the MDM Rationale portion of this note. 12/09/24 12:40 12/09/24 12:40 Labs: Lab Results 12/09/24 12/09/24 12/09/24 Range/Units 12:40 12:41 16:07 WBC 10.1 (4.8-10.8) X10*3/uL RBC 4.51 L (4.60-5.80) X10*6/uL Hgb 12.7 L (14.0-18.0) g/dl Hct 37.6 L (42.0-52.0) % MCV 83.4 (80.0-98.0) fL MCH 28.2 (27.0-33.0) pg MCHC 33.8 (31.0-36.0) g/dl RDW 12.7 (11.0-16.0) % Plt Count 251 (160-400) X10*3/uL MPV 10.5 (9.4-12.4) fL Immature Gran % (Auto) 0.3 (0.0-0.4) % Neut % (Auto) 89.6 H (45-73) % Lymph % (Auto) 6.8 L (20-40) % [place] % (Auto) 2.9 (2-11) % Eos % (Auto) 0.2 (0-4) % Baso % (Auto) 0.2 (0-2) % Lymph # (Auto) 0.7 L (1.2-4.9) X10*3/uL [place] # (Auto) 0.3 (0.1-1.2) X10*3/uL Eos # (Auto) 0.0 (0.0-0.4) X10*3/uL Baso # (Auto) 0.0 (0.0-0.2) X10*3/uL Abs Immat Gran (auto) 0.03 (0.00-0.03) X10*3/uL Absolute Neuts (auto) 9.1 H (2.0-8.3) x10*3/uL Absolute Nucleated RBC 0.000 (0.0-0.012) X10*3/uL Nucleated RBC % (auto) 0.0 (0.0-0.2) /100WBC Sodium 144 (135-145) mmol/L Potassium 3.8 (3.3-5.1) mmol/L Chloride 108 (96-108) mmol/L Carbon Dioxide 27 (22-29) mmol/L Anion Gap 13 (12-20) BUN 17 H (9-16) mg/dL Creatinine 0.87 (0.5-1.4) mg/dL Estim Creat Clear Calc 81.8 Estimated GFR > 60 Random Glucose 174 H (60-115) mg/dL Calcium 9.3 (8.4-10.2) mg/dL Total Bilirubin 0.3 (0.0-1.0) mg/dL Direct Bilirubin 0.1 (0.0-0.5) mg/dL AST 23 (5-37) U/L ALT 15 (0-40) U/L Alkaline Phosphatase 106 (39-117) U/L Total Protein 7.2 (6.5-8.0) g/dL Albumin 4.1 (3.5-5.0) g/dL Lipase 19 (8-78) U/L Urine Color Yellow Urine Appearance Clear Urine pH >= 9.0 (5.0-9.0) Ur Specific Fe [employer] >= 1.030 H (1.005-1.025) Urine Protein Trace (Neg-Trace) mg/dL Urine Glucose (UA) Negative (Negative) mg/dL Urine Ketones 40 (Negative) mg/dL Urine Blood Negative (Negative) Urine Nitrite Negative (Negative) Ur Leukocyte Esterase Negative (Negative) Ethyl Alcohol 13 mg/dL COVID-19 (MUMTAZ) Negative (Negative) COVID-19 Clin Com See Note Influenza Type A (TIERRA) Negative (Negative) Influenza Type B (TIERRA) Negative (Negative) Influenza A & B Note See Note Independent Interpretation I performed an independent interpretation of an: EKG and CT Scan Interpretation: My interpretation is in agreement with the radiologist's impression of this imaging study. L Reason for Exam: RLQ abd pain EXAMINATION: CT ABDOMEN AND PELVIS WITH CONTRAST CLINICAL INFORMATION: Right lower quadrant abdominal pain. COMPARISON: None available. TECHNIQUE: Multidetector volumetric images were obtained from the superior aspect of the liver through the pubic symphysis following administration 85 mL of Omnipaque 350 intravenous contrast. Sagittal and coronal reformatted images were obtained on the technologist's workstation. Oral contrast: No This CT examination was performed using dose optimization techniques as appropriate, variously including the following: *Automated exposure control *Adjustment of mA and/or kV according to patient size (this includes techniques or standardized protocols for targeted exams where dose is matched to indication/reason for exam; i.e. extremities or head) *Use of iterative reconstruction technique FINDINGS: LUNG BASES: Patchy dependent opacities in both lower lobe suggestive of gravity dependent atelectasis. Focal tree-in-bud opacities in the subpleural left lower lobe suspicious for infectious etiology. No effusions. Normal heart size. No pericardial effusion. LIVER, GALLBLADDER, AND BILIARY TREE: The liver is normal in size, shape, and attenuation. No focal hepatic lesion or biliary ductal dilatation is present. The gallbladder is unremarkable with no evidence of radiopaque gallstones, gallbladder wall thickening, or obvious pericholecystic inflammatory changes. Probable adenomyomatosis of the fundus. PANCREAS: Unremarkable. SPLEEN: Unremarkable. ADRENAL GLANDS: There are 2 subcentimeter nodules in the left adrenal lateral clemente, statistically most likely adenomas. Mild hyperplasia of the right adrenal. KIDNEYS AND URETERS: The right kidney demonstrates to 3 mm nonobstructing calculi in the upper pole. There is a 1.7 cm cyst in the mid to upper pole. There are additional tiny cysts present. There is no hydronephrosis or mass present. The proximal right ureter is normal. The left kidney demonstrates a few scattered tiny subcentimeter cysts. No hydronephrosis or mass. No calculi. The proximal left ureter is normal. BLADDER: Underdistended but unremarkable in appearance. GASTROINTESTINAL TRACT: Normal appendix visualized. The stomach, duodenum, and small bowel appear normal. No wall thickening or inflammation identified. The colon demonstrates a few scattered diverticula. No wall thickening or inflammation evident. Mild submucosal fat deposition in the right hemicolon is noted, nonspecific. This can be seen in the setting of obesity, steroid use, and prior bouts of colonic inflammation. There is no rectal abnormality. PERITONEUM: No free air or ascites. ABDOMINAL WALL: Tiny fat-containing left inguinal hernia. LYMPH NODES: No abnormal lymphadenopathy present. VASCULAR: There is mild calcific atheromatous disease of the aorta and iliac arteries. There is no aneurysm. PELVIC VISCERA: The prostate is enlarged, with diameter of 4.4 cm and protrusion of the median lobe into the bladder base. Seminal vesicles appear normal.. OSSEOUS STRUCTURES: No suspicious lytic or blastic bone lesions. Calcific enthesopathy of the bilateral hamstring tendons. Chondrocalcinosis in both hip joints with associated mild to moderate degenerative arthrosis. Moderate degenerative spondylosis of the imaged spine. Grade 1 sp[address]olisthesis L4 on L5. CT/CT abdomen pelvis w IV con IMPRESSION: 1. Findings suspicious for left lower lobe pneumonia. Recommend correlation with clinical presentation. 2. No definite acute findings in the abdomen or pelvis. 3. Numerous ancillary findings as discussed in the body of the report. Electronically signed by: Aashish Collado MD 12/09/2024 02:43 PM EDT RP Dictated By: Aashish Collado MD Signed By: Electronically signed by Aashish Collado MD 12/09/24 1443 Vent. Rate: 69 BPM Atrial Rate: 69 BPM P-R Int: 164 ms QRS Dur: 88 ms QT Int: 412 ms P-R-T Axes: 61 66 35 degrees QTcB Int: 441 ms Normal sinus rhythm with sinus arrhythmia Normal ECG When compared with ECG of 14-Jul-2016 18:08, Left posterior fascicular block is no longer Present Nonspecific T wave abnormality, improved in Inferior leads QT has lengthened DD/ 1245 Radiology Impression Discussion of test interpretation with radiology: I have reviewed the radiologist's reading. Independent Historian Clinical information obtained from an independent historian. History obtained from or confirmed by: EMS (EMS provided additional history and confirmed the history provided by the patient. ) Prescription Management I considered prescription management with: Antibiotic (patient prescribed an antibiotic) Discharge Plan Discharge Clinical Impression: Opiate withdrawal Pneumonia Qualifiers: Pneumonia type: due to unspecified organism Laterality: left Lung location: l ower lobe of lung Qualified Code(s): J18.9 - Pneumonia, unspecified organism Patient Disposition: Home, Self-Care Instructions: Opioid Withdrawal (ED), Pneumonia (ED), Opioid Use Disorder (ED) Additional Instructions: Opiate use disorder You were seen in our Emergency Department today for treatment of opiate use disorder. You have been dosed with medication for opiate use disorder (MOUD) in the form of methadone. You may experience feeling some withdrawal symptoms and this is normal. The? dose in the Emergency Department is a starting dose and meant to be titrated up once you follow up with a clinic. Please do not feel discouraged, it is a process. The nurse has reviewed with you where to follow up and what information to bring with you, to continue treatment. You also may have been given naloxone (narcan) to take home with you. This medication is used to potentially treat opiate overdose. If you decide you want to stop or cut down on how much you?re using, you can call or walk into our outpatient Addiction Treatment office: [facility] (M-F 9am-5p) [address], [address] You were also provided a list of several treatment providers in the area.? If you experience any worsening symptoms you cannot control please return to the ED or call 911. Please follow up at your next appointment. Things to look out for are fevers, chest pain, shortness of breath, severe pain, dizziness, fainting or any other concerns. Please follow up with [facility] at 8am tomorrow (12/10/2024). Take your antibiotic as prescribed. IF you are prescribed home medications and/or you are taking over the counter medications at home - it is very important you continue to do so as prescribed / directed unless told otherwise. Follow up with your primary care provider. Return to the emergency department immediately if your symptoms worsen or if you develop any numbness, tingling, dizziness, shortness of breath, difficulty breathing, chest pain, blurry vision, loss of vision, nausea, vomiting, abdominal pain, fever, chills, back pain, or any other complaints. Please see the information below about our Patient Portal. If you are not yet enrolled in the [facility] Patient Portal, you will receive an enrollment email invitation following your visit to any [facility] setting. You may also self-enroll in the Patient Portal by visiting our website: [email or web address] The following information is required to access the Patient Portal: - Your [facility] Medical Record Number - Your personal home email address (must match what is in your electronic medical record, Registration staff can assist with this) - Name - Date of Capabilities of the Patient Portal: - Message some providers - View upcoming appointments - Access your health summary, medical history, and visit history - View current conditions and allergies - View procedure and lab results - View your medications, including guidelines, side effects, and precautions - Complete pre-appointment questionnaires requested by your provider - Ready summary reports of your office visits and procedures To access the Patient Portal Mobile [employer], follow these directions: - Search [employer] in the [employer] Store or [employer] Store - Download the Jone - Search for [facility] - Enter your login/password Prescriptions: New doxycycline hyclate 100 mg tablet 100 mg PO BID 7 Days Qty: 14 0RF No Action terazosin 5 mg capsule 5 mg PO BEDTIME 90 Days Qty: 90 3RF Rx Instructions: One (1) tab at bedtime mirtazapine 45 mg tablet 45 mg PO BEDTIME fluoxetine 10 mg capsule 10 mg PO QAM olanzapine 2.5 mg tablet 2.5 mg PO QAM cholecalciferol (vitamin D3) 25 mcg (1,000 unit) tablet 25 mcg PO QAM aspirin 81 mg tablet,chewable 1 tab PO QAM atorvastatin 10 mg tablet 10 mg PO QAM Referrals: Bisi Kerr MD [Primary Care Provider, Internal Medicine] Interventions: ED Discharge Assessment Last Done: 12/09/24 16:30 Discharge Date/Time: 12/09/24 16:33 Print Language: Lithuanian
--- NOTE | 2024-12-09 12:42 | ECG_ITS ---
Test Reason : ABD PAIN Blood Pressure : */* mmHG Vent. Rate : 69 BPM Atrial Rate : 69 BPM P-R Int : 164 ms QRS Dur : 88 ms QT Int : 412 ms P-R-T Axes : 61 66 35 degrees QTcB Int : 441 ms Normal sinus rhythm with sinus arrhythmia Normal ECG When compared with ECG of 14-Jul-2016 18:08, Left posterior fascicular block is no longer Present Nonspecific T wave abnormality, improved in Inferior leads Referred By: Gaby Mendoza Electronically Signed By: PARESH OSBORN
[2024-12-09 12:46] LABS: MANUAL DIFF FLAG NO
[2024-12-09 12:48] LABS: Hematocrit 37.6 % (42.0-52.0); Hemoglobin 12.7 g/dl (14.0-18.0); Imm Gran Abs Auto 0.03 X10*3/uL (0.00-0.03); Imm Gran Pct Auto 0.3 % (0.0-0.4); Lymphocytes Absolute Auto 0.7 X10*3/uL (1.2-4.9); Mean Corpuscular HGB Conc 33.8 g/dl (31.0-36.0); Mean Corpuscular Hemoglobin 28.2 pg (27.0-33.0); Mean Corpuscular Volume 83.4 fL (80.0-98.0); NRBC Abs Auto 0.000 X10*3/uL (0.0-0.012); NRBC Pct Auto 0.0 /100WBC (0.0-0.2); Platelet Count 251 X10*3/uL (160-400); Red Blood Count 4.51 X10*6/uL (4.60-5.80); White Blood Count 10.1 X10*3/uL (4.8-10.8)
[2024-12-09 13:00] VITALS: RESP 20
[2024-12-09] MEDS: diazePAM 10 MG/2 ML CARTRIDGE 2.5 MG IVPUSH (13:00)
[2024-12-09 13:03] LABS: Alanine Aminotransferase 15 U/L (0-40); Albumin Level 4.1 g/dL (3.5-5.0); Alkaline Phosphatase 106 U/L (39-117); Anion Gap 13 (12-20); Aspartate Amino Transferase 23 U/L (5-37); Blood Urea Nitrogen 17 mg/dL (9-16); Calcium 9.3 mg/dL (8.4-10.2); Carbon Dioxide 27 mmol/L (22-29); Chloride 108 mmol/L (96-108); Creatinine Clr Calc Pharmacy 81.8; Estimated Glomerular Filt Rate > 60; Lipase 19 U/L (8-78); Potassium 3.8 mmol/L (3.3-5.1); Sodium 144 mmol/L (135-145); Total Protein 7.2 g/dL (6.5-8.0)
[2024-12-09 13:08] VITALS: BP 129/76; PULSE 58; RESP 16; O2SAT 94
[2024-12-09] MEDS: iohexoL 350 MG/ML 100 ML INFUS..BTL IV (14:07)
--- NOTE | 2024-12-09 15:11 | HO.ADDICTCON ---
History of Present Illness Date of Service: 12/09/2024 Chief Complaint: ABD PAIN,N/V PER EMS Sources of Information: patient interviewed and chart reviewed HPI Narrative: Patient is a 64 year old male who presented to [facility] ED c/o n/v and abdominal pain. He also reported heroin use, with last use being yesterday. Consult requested for concern of opiate withdrawal as GI work up unremarkable. Patient seen in room 20 of main ED. He is awake, alert, visibly uncomfortable, but engaged in interview. He states he has been using approx 1 bundle+ daily. States he had been in recovery abstaining from substance use for a long time , and recently started using again. He states that he has been engaged in treatement for OUD in the past with both methadone and buprenorphine. Offered either medication, he chose methadone. Labs reviewed Remainder of RAJI history deferred as patient was quite uncomfortable. Medical Evaluation Reviewed: Yes Review of Systems Constitutional: Reports as per HPI, Reports body ache(s), Reports chills and Reports malaise Gastrointestinal: Reports abdominal pain, Reports nausea and Reports vomiting Diagnostics Vital Signs (24Hr): Vital Signs - 24 hr 12/09/24 12:30 12/09/24 12:36 12/09/24 13:00 Temperature 98.2 F Pulse Rate 67 Respiratory Rate 20 20 Blood Pressure 132/78 Pulse Oximetry 100 Oxygen Delivery Method Room Air Room Air Oxygen Flow Rate 12/09/24 13:08 Temperature Pulse Rate 58 Respiratory Rate 16 Blood Pressure 129/76 Pulse Oximetry 94 Oxygen Delivery Method Nasal Cannula Oxygen Flow Rate 2 BMI result Body Mass Index 25.3 Labs 12/09/24 12:40 12/09/24 12:40 Labs: Laboratory Results - last 48 hr 12/09/24 12/09/24 12:40 12:41 WBC 10.1 RBC 4.51 L Hgb 12.7 L Hct 37.6 L MCV 83.4 MCH 28.2 MCHC 33.8 RDW 12.7 Plt Count 251 MPV 10.5 Immature Gran % (Auto) 0.3 Neut % (Auto) 89.6 H Lymph % (Auto) 6.8 L Gila % (Auto) 2.9 Eos % (Auto) 0.2 Baso % (Auto) 0.2 Lymph # (Auto) 0.7 L Gila # (Auto) 0.3 Eos # (Auto) 0.0 Baso # (Auto) 0.0 Abs Immat Gran (auto) 0.03 Absolute Neuts (auto) 9.1 H Absolute Nucleated RBC 0.000 Nucleated RBC % (auto) 0.0 Sodium 144 Potassium 3.8 Chloride 108 Carbon Dioxide 27 Anion Gap 13 BUN 17 H Creatinine 0.87 Estim Creat Clear Calc 81.8 Estimated GFR > 60 Random Glucose 174 H Calcium 9.3 Total Bilirubin 0.3 Direct Bilirubin 0.1 AST 23 ALT 15 Alkaline Phosphatase 106 Total Protein 7.2 Albumin 4.1 Lipase 19 Ethyl Alcohol 13 Imaging Radiology Impressions: ITS Impressions Abdomen/Pelvis CT 12/09/24 13:48 IMPRESSION: 1. Findings suspicious for left lower lobe pneumonia. Recommend correlation with clinical presentation. 2. No definite acute findings in the abdomen or pelvis. 3. Numerous ancillary findings as discussed in the body of the report. Electronically signed by: Aashish Collado MD 12/09/2024 02:43 PM EDT RP Mental Status Exam Mental Status Exam Level of Consciousness: Awake, Restless and Alert Patient Behavior: Appropriate, Cooperative and Anxious Affect Description: Anxious Speech Pattern: Clear Hallucinations: None Delusions: Not Present Judgement: Good Medications Medications Current Medications Methadone HCl (Methadone Hcl 20 Mg/2 Ml Oral.Conc) 30 mg PO ONCE ONE Stop: 12/09/24 15:10 Allergies Allergies Allergy/AdvReac Type Severity Reaction Status Date / Time haloperidol (From HALDOL) AdvReac Severe Involuntary Verified 12/09/24 12:34 Spasms From SEROQUEL AdvReac Severe Involuntary Uncoded 12/09/24 12:34 Spasms Assessment & Plan Assessment & Plan (1) Opioid use disorder: Status: Acute Code(s): F11.99 - Opioid use, unspecified with unspecified opioid-induced disorder Assessment and Plan: appears to be experiencing acute withdrawal sx--methadone 30mg X1. If he can tolerate and improvement in sx, additional 10mg can be administered Referral to [facility] [address] [facility] --call or contact centre coach to fax referral --last dose letter at time of discharge Take home narcan Total time managing care of this patient today __20__ minutes. PMFSH Past Medical History Medical History Opioid use disorder Depression Bipolar disorder PTSD (post-traumatic stress disorder) Benign prostate hyperplasia Family History Family History Father No problems noted. Mother No problems noted. Brother Prostate cancer Surgical History Surgical History History of intestinal surgery S/P foot surgery, left Social History Social History Patient Tobacco Use Status: Former Tobacco user Advance Directives: No Advance Directives Information Provided: Yes
[2024-12-09] MEDS: methADONE HCl 20 MG/2 ML ORAL.CONC 30 MG PO (15:38)
--- NOTE | 2024-12-09 16:09 | PC.NURSE ---
Spoke with Xavier (daughter) over the phone with patient consent. .
[2024-12-09 16:17] LABS: Appearance Urine Clear; Glucose Urine UA Negative (Negative); PH >= 9.0 (5.0-9.0); Specific Gravity - Urine >= 1.030 (1.005-1.025)
[2024-12-09] MEDS: Naloxone HCl Nasal TAKE HOME 4 MG SPRAY 8 MG NOSTRILALT (16:27)
[2024-12-09 16:30] VITALS: BP 118/72; PULSE 72; RESP 16; TEMP 36.8; O2SAT 97
[2024-12-09 16:30] LABS: COVID-19 Test Negative (Negative); IDNOW Serial# 16C4AD1C
[2024-12-09 16:32] LABS: IDNOW Serial# 152EDE1D; Influenza B2 Negative (Negative)
--- OUTSIDE RECORDS SUMMARY | 2024-12-09 16:59 | XMS_ITS | Patient Health Record ---
Author Organization [facility] Address [address] [place] [address] Care Team Providers Care [employer]er Name Role Phone Harry Jara Primary Care Provider John Callaway Jr Unavailable [phone] Allergies No Known Allergies Reason For Referral No Information Medications Medication SIG (Take, Route, Frequency, Duration) Notes [...] e a day for 30 day(s) Active Immunizations Vaccine Route Administration Date Status Comme nts Influenza Unknown 12/07/2021 Refused Social History Tobacco Use: Social History Observation Description Date Details (start date - stop date) Current Smoker NA - NA Tobacco Use/Smoking Question Answer Notes Patient is a current smoker Alcohol Screen Question Answer Notes Did you have a drink containing alcohol in the p ast year? No Points 0 Interpretation Negative Problems Problem Type SNOMED Code ICD Code Onset Dates Problem Status W/U Status Risk Notes Problem [id number] Encounter for screening for malignant neoplasm of colon (Z12.11) Active confirmed Plan Of Treatment Future Test Test Name Order Date COLONOSCOPY 12/07/2021 Insurance Providers Payer Name Payer Address Payer Phone Subscriber Number Group Number Insured Name Patient Relationship to Insured Coverage Start Date Coverage End Date MEDICAID OF [facility] [address] [place] [phone] [id number] EVELYN MCKENNA Self - patient is the insured Medical (General) History Medical History History ICD Code Hypertension BPH Opiate dependence Anxiety/depression Insomnia Surgical History Surgery Date(Month/Year) [place] [id number]
--- OUTSIDE RECORDS SUMMARY | 2024-12-09 16:59 | XMS_ITS | Clinical Summary ---
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 Days 1-3: 0.5 mg PO qDay, Days 4-7: 0.5 mg PO BID, Day 8 to end of treatment: 1 mg PO BID,. 1 each 4 Active varenicline (Chantix) 1 MG tablet Take 1 tablet (1 mg) by mouth 2 times daily. Days 1-3: 0.5 mg PO qDay, Days 4-7: 0.5 mg PO BID, Day 8 to end of treatment: 1 mg PO BID, Take with full glass of water. 60 tablet 2 4 Active mirtazapine (Remeron) 30 MG tablet Take 30 mg by mouth at bedtime. Active atorvastatin (Lipitor) 10 MG tablet Take 1 tablet (10 mg) by mouth Once per day. 90 tablet 5 09/05/19 26 Active Diclofenac Sodium 1 % gel Apply 1 Application. topically if needed each day (shoudler,knee ,lower back pain). 50 g 1 5 Active Active Problems Problem Noted Date Diagnosed Date [...] Encounters Date Type Department Care Team Description 12/09/2024 Results Follow-Up [facility] [address] [place] [address] [phone] Abdomen Pelvis w/ Contrast 12/09/2024 Orders Only [facility] External Provider, [facility] 12/04/2024 Patient Outreach [facility] [address] [place] [address] Bisi Kerr MD Pre-visit Planning (SDOH screening completed on 07/28/2024) 12/04/2024 Patient Outreach [facility] [address] [place], [place] [phone] Bisi Kerr MD Pre-visit Planning (SDOH was already completed ) 11/03/2024 10:00 AM EDT Office Visit [facility] [address] [place] [address] Osmar, Hannah, OD 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) 10/17/2024 Telephone [facility] [address] [place] [address] Bisi Kerr MD Appointment 09/16/2024 Orders Only GENERIC EXTERNAL DATA DEPARTMENT Provider, Generic External Data 09/08/2024 Telephone [facility] [address] [place] [address] Bisi Kerr MD referral denial from Last 3 Months Immunizations Immunization Administration [...] Care Team (Late st Contact Info) Description 12/11/2024 2:30 PM EDT Office Visit [facility] [address] [place], [place] [phone] Bisi Kerr MD [address] [place], [place] [phone] Health Maintenance Due Date Last Done Comments CT Colonography 1959 Colonoscopy 1960 Colorectal Cancer Screening 1960 FIT DNA/Cologuard 1960 FIT 1959 FOBT 1960 Sigmoidoscopy 1960 Zoster Vaccines (1 of 2) 2009 Pneumococcal Vaccine: 50+ Years (2 of 2 - PCV) 01/16/2019 01/16/2018 COVID-19 Vaccine ( - season) 2024 Influenza Vaccine (#1) 2024 , 12/05/2022, 01/19/2022, Additional history exists Alcohol/Substance Use Screening 01/24/2025 01/25/2024 SDOH Screening [...] history exists Hepatitis C Screening Completed 12/26/2022 HIB Vaccines Aged Out No longer eligi [...] Procedure Name Priority Date/Time Associated Diagnosis Comments COVID-19 ID NOW (PacerPro) Routine 12/09/2024 4:07 PM EDT URINALYSIS WITH REFLEX MICROSCOPIC Routine 12/09/2024 4:07 PM EDT INFLUENZA A B2 ID NOW (HUYNH) Routine 12/09/2024 4:[address] ABDOMEN PELVIS W CONTRAST Routine 12/09/2024 1:48 PM EDT ETHANOL Routine 12/09/2024 12:41 PM EDT LIPASE Routine 12/09/2024 12:40 PM EDT HEPATIC FUNCTION PANEL Routine 12/09/2024 12:40 PM EDT COMPREHENSIVE METABOLIC PANEL Routine 12/09/2024 12:40 PM EDT CBC WITH AUTO DIFFERENTIAL Routine 12/09/2024 12:40 PM EDT PSA, TOTAL Routine 09/16/2024 1:12 PM EDT LIPID PANEL, STANDARD Routine 08/29/2024 12:13 PM EDT Hyperlipidemia, unspecified hyperlipidemia type HEPATITIS C AB W/REFL TO HCV RNA, QN, PCR Routine 12/26/2022 2:59 PM EDT Health care maintenance from Last 3 Months or Most Recently Relevant to Health Maintenance Results * Influenza A B2 ID NOW (Huynh) (12/09/2024 4:07 PM EDT) IDNOW SERIAL# [id number] [facility] Influenza A Negative Negative [facility] Influenza B2 Negative Negative [facility] Influenza A B2 Note See Note [facility] Comment:The Huynh ID NOW In fluenza A B2 test is used for thequalitative detection of influenza A and B from patientswith signs and symptoms of respiratory infection.Negative results do not preclude influenza virus infectionand should not be used as the sole basis for diagnosis,treatment or other patient management decisions.There is a risk of false negative results due to thepresence of variants in the viral targets of the assay, lowlevels of virus in the specimen and co- infection withRespiratory Syncytial Virus. 12/09/2024 4:07 PM EDT 12/09/2024 4:12 PM EDT us Generic External Data Provider LAB MICROBIOLOGY - GENERAL ORDERABLES Final Result [facility] [address] [place] [phone] * COVID-19 ID NOW (HUYNH) (12/09/2024 4:07 PM EDT) IDNOW SERIAL# [id number] [facility] COVID-19 TEST Negative Negative [facility] COVID-19 NOTE See Note [facility] Comment: Results are for the identification of SARS-CoV2 RNA. TheSARS-CoV2 RNA is generally detectable in respiratory samplesduring the acute phase of infection. Positive results areindicative of the presence of SARS-CoV-2 RNA; clinicalcorrelation with patient history and other diagnosticinformation is necessary to determine patient infectionstatus. Positive results do not rule out bacterial infectionor co- infection with other viruses.Testing facilities within the [facility] and itsterritories are required to report all positive results tothe appropriate public health authorities.Negative results should be treated as presumptive and, ifinconsistent with clinical signs and symptoms or necessaryfor patient management, should be tested with differentauthorized or cleared molecular tests. Negative results donot preclude SARS-CoV2 RNA infection and should not be usedas the sole basis for patient management decisions. Negativeresults should be considered in the context of a patient'srecent exposures, history and the presence of clinical signsand symptoms consistent with COVID-19.This test has been authorized by the FDA under an EmergencyUse Authorization (EUA) for use by authorized laboratories.Testing performed on the [facility] ID NOW utilizing NAAT. 12/09/2024 4:07 PM EDT 12/09/2024 4:12 PM EDT us Generic External Data Provider LAB MOLECULAR MARV GNOSTICS ORDERABLES Final Result Performing Organization Address [facility]/ZIP Co de Phone Number [facility] [address] [place] [phone] * (ABNORMAL) Urinalysis w/reflex microscopic (12/09/2024 4:07 PM EDT) Color Urine Yellow [facility] Appearance Urine Clear [facility] PH >=9.0 5.0 - 9.0 [facility] Glucose Urine UA Negative Negative mg/dL [facility] Urine Blood Negative Negative [facility] Specific [place] - Urine >=1.030(H) 1.005 - 1.025 [facility] Urine Protein Trace Neg-Trace mg/dL [facility] Urine Ketones 40 Negative mg/dL [facility] Nitrite Urine Negative Negative [facility] Leukocyte Esterase Urine Negative Negative [facility] 12/09/2024 4:07 PM EDT 12/09/2024 4:12 PM EDT Narrative [facility] - 12/09/2024 4:18 PM EDT [id number], [employer] Generic External Data Provider LAB URINE ORDERAB LES Final Result Performing Organization Address [facility]/ZIP Co de Phone Number [facility] [address] [place] [phone] * CT Abdomen Pelvis w/ Contrast (12/09/2024 1:48 PM EDT) Anatomical Region Laterality Modality Body, Pelvis, Abdomen Computed T omography 12/09/2024 1:48 PM EDT Narrative 12/09/2024 2:46 PM EDT [address] [address] [address] Scan Report Signed Patient: Niranjan Pierson MR#: [id number] : 1960 Acct:[id number] Age/Sex: 64 / M ADM Date: 12/09/24 Loc: HO.ED Attending Dr: Ordering Physician: Gaby Mendoza Date of Service: 12/09/24 Procedure(s): CT abdomen pelvis w IV con Accession Number(s): [id number] cc: Gaby Mendoza; Bisi Kerr MD Report Number: [id number]: Total DLP = 437.00 mGy-cm Reason for Exam: RLQ abd pain EXAMINATION: CT ABDOMEN AND PELVIS WITH CONTRAST CLINICAL INFORMATION: Right lower quadrant abdominal pain. COMPARISON: None available. TECHNIQUE: Multidetector volumetric images were obtained from the superior aspect of the liver through the pubic symphysis following administration 85 mL of Omnipaque 350 intravenous contrast. Sagittal and coronal reformatted images were obtained on the technologist's workstation. Oral contrast: No This CT examination was performed using dose optimization techniques as appropriate, variously including the following: *Automated exposure control *Adjustment of mA and/or kV according to patient size (this includes techniques or standardized protocols for targeted exams where dose is matched to indication/reason for exam; i.e. extremities or head) *Use of iterative reconstruction technique FINDINGS: LUNG BASES: Patchy dependent opacities in both lower lobe suggestive of gravity dependent atelectasis. Focal tree-in-bud opacities in the subpleural left lower lobe suspicious for infectious etiology. No effusions. Normal heart size. No pericardial effusion. LIVER, GALLBLADDER, AND BILIARY TREE: The liver is normal in size, shape, and attenuation. No focal hepatic lesion or biliary ductal dilatation is present. The gallbladder is unremarkable with no evidence of radiopaque gallstones, gallbladder wall thickening, or obvious pericholecystic inflammatory changes. Probable adenomyomatosis of the fundus. PANCREAS: Unremarkable. SPLEEN: Unremarkable. ADRENAL GLANDS: There are 2 subcentimeter nodules in the left adrenal lateral clemente, statistically most likely adenomas. Mild hyperplasia of the right adrenal. KIDNEYS AND URETERS: The right kidney demonstrates to 3 mm nonobstructing calculi in the upper pole. There is a 1.7 cm cyst in the mid to upper pole. There are additional tiny cysts present. There is no hydronephrosis or mass present. The proximal right ureter is normal. The left kidney demonstrates a few scattered tiny subcentimeter cysts. No hydronephrosis or mass. No calculi. The proximal left ureter is normal. BLADDER: Underdistended but unremarkable in appearance. GASTROINTESTINAL TRACT: Normal appendix visualized. The stomach, duodenum, and small bowel appear normal. No wall thickening or inflammation identified. The colon demonstrates a few scattered diverticula. No wall thickening or inflammation evident. Mild submucosal fat deposition in the right hemicolon is noted, nonspecific. This can be seen in the setting of obesity, steroid use, and prior bouts of colonic inflammation. There is no rectal abnormality. PERITONEUM: No free air or ascites. ABDOMINAL WALL: Tiny fat-containing left inguinal hernia. LYMPH NODES: No abnormal lymphadenopathy present. VASCULAR: There is mild calcific atheromatous disease of the aorta and iliac arteries. There is no aneurysm. PELVIC VISCERA: The prostate is enlarged, with diameter of 4.4 cm and protrusion of the median lobe into the bladder base. Seminal vesicles appear normal.. OSSEOUS STRUCTURES: No suspicious lytic or blastic bone lesions. Calcific enthesopathy of the bilateral hamstring tendons. Chondrocalcinosis in both hip joints with associated mild to moderate degenerative arthrosis. Moderate degenerative spondylosis of the imaged spine. Grade [address]olist[address] L4 on L5. [address]/CT abdomen pelvis w IV con IMPRESSION: 1. Findings suspicious for left lower lobe pneumonia. Recommend correlation with clinical presentation. 2. No definite acute findings in the abdomen or pelvis. 3. Numerous ancillary findings as discussed in the body of the report. Electronically signed by: Aashish Collado MD 12/09/2024 02:43 PM EDT Dictated By: Aashish Collado MD Signed By: <Electronically signed by Aashish Collado MD in OV> 12/09/24 1443 DD/ 1348 TD/TT: 12/09/24 1405 [employer] Bever[employer] Associate: Procedure Note Donotuseinterpreter, Image - 12/09/[address] [address] [address] Scan Report Signed Patient: Renato Pierson#: Vahid [id number] : 1960Acct:[id number] Age/Sex: 64 / MADM Date: 12/09/24 Loc: HO.ED Attending Dr: Ordering Physician: Gaby Mendoza Date of Service: 12/09/24 Procedure(s): CT abdomen pelvis w IV con Accession Number(s): [id number] cc: Gaby Mendoza; Bisi Kerr MD Report Number: [id number]: Total DLP = 437.00 mGy-cm Reason for Exam: RLQ abd pain EXAMINATION: CT ABDOMEN AND PELVIS WITH CONTRAST CLINICAL INFORMATION: Right lower quadrant abdominal pain. COMPARISON: None available. TECHNIQUE: Multidetector volumetric images were obtained from the superior aspect of the liver through the pubic symphysis following administration 85 mL of Omnipaque 350 intravenous contrast. Sagittal and coronal reformatted images were obtained on the technologist's workstation. Oral contrast: No This CT examination was performed using dose optimization techniques as appropriate, variously including the following: *Automated exposure control *Adjustment of mA and/or kV according to patient size (this includes techniques or standardized protocols for targeted exams where dose is matched to indication/reason for exam; i.e. extremities or head) *Use of iterative reconstruction technique FINDINGS: LUNG BASES: Patchy dependent opacities in both lower lobe suggestive of gravity dependent atelectasis. Focal tree-in-bud opacities in the subpleural left lower lobe suspicious for infectious etiology. No effusions. Normal heart size. No pericardial effusion. LIVER, GALLBLADDER, AND BILIARY TREE: The liver is normal in size, shape, and attenuation. No focal hepatic lesion or biliary ductal dilatation is present. The gallbladder is unremarkable with no evidence of radiopaque gallstones, gallbladder wall thickening, or obvious pericholecystic inflammatory changes. Probable adenomyomatosis of the fundus. PANCREAS: Unremarkable. SPLEEN: Unremarkable. ADRENAL GLANDS: There are 2 subcentimeter nodules in the left adrenal lateral clemente, statistically most likely adenomas. Mild hyperplasia of the right adrenal. KIDNEYS AND URETERS: The right kidney demonstrates to 3 mm nonobstructing calculi in the upper pole. There is a 1.7 cm cyst in the mid to upper pole. There are additional tiny cysts present. There is no hydronephrosis or mass present. The proximal right ureter is normal. The left kidney demonstrates a few scattered tiny subcentimeter cysts. No hydronephrosis or mass. No calculi. The proximal left ureter is normal. BLADDER: Underdistended but unremarkable in appearance. GASTROINTESTINAL TRACT: Normal appendix visualized. The stomach, duodenum, and small bowel appear normal. No wall thickening or inflammation identified. The colon demonstrates a few scattered diverticula. No wall thickening or inflammation evident. Mild submucosal fat deposition in the right hemicolon is noted, nonspecific. This can be seen in the setting of obesity, steroid use, and prior bouts of colonic inflammation. There is no rectal abnormality. PERITONEUM: No free air or ascites. ABDOMINAL WALL: Tiny fat-containing left inguinal hernia. LYMPH NODES: No abnormal lymphadenopathy present. VASCULAR: There is mild calcific atheromatous disease of the aorta and iliac arteries. There is no aneurysm. PELVIC VISCERA: The prostate is enlarged, with diameter of 4.4 cm and protrusion of the median lobe into the bladder base. Seminal vesicles appear normal.. OSSEOUS STRUCTURES: No suspicious lytic or blastic bone lesions. Calcific enthesopathy of the bilateral hamstring tendons. Chondrocalcinosis in both hip joints with associated mild to moderate degenerative arthrosis. Moderate degenerative spondylosis of the imaged spine. Grade [address]olisthesis L4 on L5. CT/CT abdomen pelvis w IV con IMPRESSION: 1. Findings suspicious for left lower lobe pneumonia. Recommend correlation with clinical presentation. 2. No definite acute findings in the abdomen or pelvis. 3. Numerous ancillary findings as discussed in the body of the report. Electronically signed by: Aashish Collado MD 12/09/2024 02:43 PM EDT Dictated By: Aashish Collado MD Signed By: <Electronically signed by Aashish Collado MD in OV> 12/09/24 1443 DD/ 1348 TD/TT: 12/09/24 1405 [employer] And Bever[employer] Associate: us [facility] External Provider IMG CT PROCEDURES Edited Result - Final * Ethanol (12/09/2024 12:41 PM EDT) ETHANOL (MG/DL) IN SER/PLAS 13 mg/dL [facility] Comment:Serum/plasma ethanol results are to be used formedical/treatment purposes only. 12/09/2024 12:4 1 PM EDT 12/09/2024 12:44 PM EDT Generic External Data Provider LAB BLOOD ORDERAB LES Final Result [facility] [address] [place] [phone] * (ABNORMAL) CBC auto differential (12/09/2024 12:40 PM EDT) White Blood Count 10.1 4.8 - 10.8 X10*3/uL [facility] Red Blood Count 4.51(L) 4.60 - 5.80 X10*6/uL [facility] Hemoglobin 12.7(L) 14.0 - 18.0 g/dl [facility] Hematocrit 37.6(L) 42.0 - 52.0 % [facility] Mean Corpuscular Volume 83.4 80.0 - 98.0 fL [facility] Mean Corpuscular Hemoglobin 28.2 27.0 - 33.0 pg [facility] Mean Corpuscular HGB Conc 33.8 31.0 - 36.0 g/dl [facility] Red Cell Distribution Width 12.7 11.0 - 16.0 % [facility] Platelet Count 251 160 - 400 X10*3/uL [facility] Mean Platelet Volume 10.5 9.4 - 12.4 fL [facility] Neutrophils Percent Auto 89.6(H) 45 - 73 % [facility] Imm Gran Pct Auto 0.3 0.0 - 0.4 % [facility] Lymphocytes Percent Auto 6.8(L) 20 - 40 % [facility] Monocytes Percent Auto 2.9 2 - 11 % [facility] Eosinophils Percent Auto 0.2 0 - 4 % [facility] Basophils Percent Auto 0.2 0 - 2 % [facility] NRBC Pct Auto 0.0 0.0 - 0.2 /100WBC [facility] Neutrophils Absolute Auto 9.1(H) 2.0 - 8.3 x10*3/uL [facility] Imm Gran Abs Auto 0.03 0.00 - 0.03 X10*3/uL [facility] Lymphocytes Absolute Auto 0.7(L) 1.2 - 4.9 X10*3/uL [facility] Monocytes Absolute Auto 0.3 0.1 - 1.2 X10*3/uL [facility] Eosinophils Absolute Auto 0.0 0.0 - 0.4 X10*3/uL [facility] Basophils Absolute Auto 0.0 0.0 - 0.2 X10*3/uL [facility] NRBC Abs Auto 0.000 0.0 - 0.012 X10*3/uL [facility] 12/09/2024 12:4 0 PM EDT 12/09/2024 12:44 PM EDT us Generic External Data Provider LAB BLOOD ORDERAB LES Final Result Performing Organization Address [facility]/ZIP Co de Phone Number [facility] [address] [place] [phone] * Lipase (12/09/2024 12:40 PM EDT) Lipase 19 8 - 78 U/L [facility] 12/09/2024 12:4 0 PM EDT 12/09/2024 12:44 PM EDT us Generic External Data Provider LAB BLOOD ORDERAB LES Final Result Performing Organization Address City/[facility]/ZIP Co de Phone Number [facility] [address] [place] [phone] * Hepatic Function Panel (12/09/2024 12:40 PM EDT) Bilirubin, Direct 0.1 0.0 - 0.5 mg/dL [facility] 12/09/2024 12:4 0 PM EDT 12/09/2024 12:44 PM EDT us Generic External Data Provider LAB BLOOD ORDERAB LES Final Result [facility] [address] [place] [phone] * (ABNORMAL) Comprehensive Metabolic Panel (12/09/2024 12:40 PM EDT) Sodium 144 135 - 145 mmol/L [facility] Potassium 3.8 3.3 - 5.1 mmol/L [facility] Chloride 108 96 - 108 mmol/L [facility] Carbon Dioxide 27 22 - 29 mmol/L [facility] Anion Gap 13 12 - 20 [facility] Urea Nitrogen (BUN) 17(H) 9 - 16 mg/dL [facility] Creatinine, Serum 0.87 0.5 - 1.4 mg/dL [facility] Creatinine Clr Calc Pharmacy 81.8 [facility] Comment:eGFR (calculated fro m the MDRD study equation) and eCrCl(calculated from the Cockcroft-Gault equation) are based ondifferent parameters and may not yield comparable results.If eCrCl result is absurd, please check patient'sheight/weight. Estimated Glomerular Filt Rate >60 [facility] Comment:Chronic Kidney Disea se: Estimated GFR < 60 mL/min/1.97o5Ericlu Kidney Disease: Estimated GFR < 15 mL/min/1.73m2 Glucose 174(H) 60 - 115 mg/dL [facility] Calcium 9.3 8.4 - 10.2 mg/dL [facility] Bilirubin, Total 0.3 0.0 - 1.0 mg/dL [facility] Aspartate Amino Transferase 23 5 - 37 U/L [facility] Alanine Aminotransferase 15 0 - 40 U/L [facility] Total Protein 7.2 6.5 - 8.0 g/dL [facility] Albumin Level 4.1 3.5 - 5.0 g/dL [facility] Alkaline Phosphatase 106 39 - 117 U/L [facility] 12/09/2024 12:4 0 PM EDT 12/09/2024 12:44 PM EDT Generic External Data Provider LAB BLOOD ORDERAB LES Final Result Performing Organization Address [facility]/ZIP Co de Phone Number [facility] [address] [place] [phone] * PSA,Total (09/16/2024 1:12 PM EDT) Prostate Specific Antigen 0.90 <0.05 - 4.0 ng/mL [facility] Comment:PSA methodology: Abb alexander Aliwaldemarty i ChemiluminescentMicroparticle Immunoassay (CMIA) 09/16/2024 1:12 PM EDT 09/16/2024 4:10 PM EDT Generic External Data Provider LAB BLOOD ORDERAB LES Final Result Performing Organization Address [facility] Co de Phone Number [facility] [address] [place] [phone] * (ABNORMAL) Lipid Panel, Standard (08/29/2024 12:13 PM EDT) Triglycerides 69 <150 mg/dL [facility] Comment:Desirable Triglyceri de: less than 150 mg/dLBorderline High Triglyceride 150-199 mg/dLHigh Triglyceride: 200-499 mg/dLVery High Triglyceride: greater than or equal to 5OO mg/dL Cholesterol 212(H) <200 mg/dL [facility] Comment:Desirable Cholestero l: less than 200 mg/dLBorderline High Cholesterol: 200-239 mg/dLHigh Cholesterol: greater than 239 mg/dL LDL Cholesterol Calculated 127(H) <100 mg/dL [facility] Comment:Desirable LDL: less than 100 mg/dLNear Optimal/Above Optimal LDL: 110- 129 mg/dLBorderline High LDL: 130-159 mg/dLHigh LDL: 160-189 mg/dLVery High LDL: greater than or equal to 190 mg/dL HDL Cholesterol 72 >40 mg/dL [facility] Comment:Desirable HDL: great er than 40 mg/dL Note: This HDL assay may give artificially low results in patients with liver disease. Blood Venous blood specimen / Unknown 08/29/2024 12:13 PM EDT 08/29/2024 1:09 PM EDT us Bisi Johnson MD LAB BLOOD ORDERAB LES Final Result Performing Organization Address [facility] [facility]/ZIP Co de Phone Number [facility] [address] [place] [address] [phone] * Hepatitis C Antibody with Reflex to HCV, RNA, Quantitative, Real-Time PCR (12/26/2022 2:59 PM EDT) Hepatitis C Antibody Nonreactive Nonreactive [facility] Comment:Antibodies to HCV no t detected; does not exclude early acuteHCV infection. Blood Venous blood specimen / Unknown 12/26/2022 2:59 PM EDT 12/26/2022 3:57 PM EDT us Bisi Johnson MD LAB BLOOD ORDERAB LES Final Result Performing Organization Address City/[facility]/ZIP Co de Phone Number [facility] [address] [place] [address] [phone] from Last 3 Months or Most Recently Relevant to Health Maintenance Insurance MEDICARE [facility] Care Teams Wood Fence Installer Relationship Specialty Start Date End Date Bisi Kerr MD [address] [place] [address] PCP - General Internal Medicine 07/07/22 Shad Baeza PharmD [address] [place] [address] Pharmacist Internal Medicine 06/07/23
--- OUTSIDE RECORDS SUMMARY | 2024-12-09 16:59 | XMS_ITS | Encounter Summary ---
Author Organization [employer] Address 75 [facility] 7t [place] [address] Care Team Providers Care Diesel Bus Mechanic Name Role Phone Bisi Kerr MD Primary Care Pro vider Shad Baeza PharmD Unavailable [phone] Reason for Visit * Reason Comments Pre-visit Planning SDOH screening compl eted on 07/28/2024 Encounter Details Date Type Department Care Team ([facility] st Contact Info) Description 12/04/2024 Patient Outreach [facility] [address] [place] [address] Bisi Kerr MD [address] [place] [address] Pre-visit Planning (SDOH screening completed on 07/28/2024) Social History Tobacco Use Types Packs/Day Years [...] as of this encounter Progress Notes * Veronica Cervantes - 12/04/2024 1:59 PM EDT CC Veronica placed successful outbound call to patient for pre-visit planning. Patient name and confirmed. Patient confirms appt date and time, and has transportation. Biggest concern for appointment at this time is none Patient advised to bring to appointment a photo id and insurance card. Appropriate screenings completed in anticipation of appointment. documented in this encounter Plan of Treatment Upcoming Encounters Date Type Department Care Team (Late st Contact Info) Description 12/11/2024 2:30 PM EDT Office Visit [facility] [address] [place] [phone] Bisi Kerr MD [address] [place] [address] documented as of this encounter Visit Diagnoses Not on filedocumented in this encounter Additional Health Concerns Assessment Noted Time PHQ-9 Depression Total Score: 0 09/05/19 25 1:17 PM EDT documented as of this encounter Care Teams Diesel Bus Mechanic Relationship Specialty Start Date End Date Bisi Kerr MD [address] [place] [address] [phone] PCP - General Internal Medicine 07/07/22 Shad Baeza PharmD [address] [place] [address] [phone] Pharmacist Internal Medicine 06/07/23 documented as of this encounter
--- OUTSIDE RECORDS SUMMARY | 2024-12-09 16:59 | XMS_ITS | Encounter Summary ---
Author Organization [employer] Address [address] [facility] [address] 7t [place] [address] Care Team Providers Care Drying Oven Tender Name Role Phone Bisi Kerr MD Primary Care Pro vider Shad Baeza PharmD Unavailable [phone] Encounter Details Date Type Department Care Team (Late st Contact Info) Description 12/09/2024 Orders Only [facility] External Provider, [facility] Social History Tobacco Use Types Packs/Day Years [...] your housing situation today? I have duarte laurita 08/28/[address] you li [...] AM EDT documented as of this encounter Plan of Treatment Upcoming Encounters Date Type Department Care Team (Late st Contact Info) Description 12/11/2024 2:30 PM EDT Office Visit [facility] [address] [place] [phone] Bisi Kerr MD [address] [place] [address] documented as of this encounter Procedures Procedure Name Priority Date/Time Associated Diagnosis Comments INFLUENZA A B2 ID NOW (HUYNH) Routine 12/09/2024 4:07 PM EDT COVID-19 ID NOW (HUYNH) Routine 12/09/2024 4:07 PM EDT URINALYSIS WITH REFLEX MICROSCOPIC Routine 12/09/2024 4:[address] ABDOMEN PELVIS W CONTRAST Routine 12/09/2024 1:48 PM EDT documented in this encounter Results * Influenza A B2 ID NOW (Huynh) (12/09/2024 4:07 PM EDT) IDNOW SERIAL# [id number] [facility] Influenza A Negative Negative [facility] Influenza B2 Negative Negative [facility] Influenza A B2 Note See Note [facility] Comment:The Huynh ID NOW In [...] LAB MICROBIOLOGY - GENERAL ORDERABLES Final Result [facility] [address] [place] [phone] * COVID-19 ID NOW (HUYNH) (12/09/2024 4:07 PM EDT) IDNOW SERIAL# [id number] [facility] COVID-19 TEST Negative Negative [facility] COVID-19 NOTE See Note [facility] Comment: Results are for the identification of SARS-CoV2 RNA. TheSARS-CoV2 RNA is generally detectable in respiratory samplesduring the acute phase of infection. Positive results areindicative of the presence of SARS-CoV-2 RNA; clinicalcorrelation with patient history and other diagnosticinformation is necessary to determine patient infectionstatus. Positive results do not rule out bacterial infectionor co- infection with other viruses.Testing facilities within the [facility] and itsterritories are required to report [...] use by authorized laboratories.Testing performed on the [employer] [facility] ID NOW utilizing NAAT. 12/09/2024 4:07 PM EDT 12/09/2024 4:12 PM EDT Generic External Data Provider LAB MOLECULAR MARV GNOSTICS ORDERABLES Final Result Performing Organization Address [facility] de Phone Number [facility] [address] [place] [address] [phone] * (ABNORMAL) Urinalysis w/reflex microscopic (12/09/2024 4:07 PM EDT) Color Urine Yellow [facility] Appearance Urine Clear [facility] PH >=9.0 5.0 - 9.0 [facility] Glucose Urine UA Negative Negative mg/dL [facility] Urine Blood Negative Negative [facility] Specific [place] - Urine >=1.030(H) 1.005 - 1.025 [facility] Urine Protein Trace Neg-Trace mg/dL [facility] Urine Ketones 40 Negative mg/dL [facility] Nitrite Urine Negative Negative [facility] Leukocyte Esterase Urine Negative Negative [facility] 12/09/2024 4:07 PM EDT 12/09/2024 4:12 PM EDT Narrative [facility] - 12/09/2024 4:18 PM EDT [id number], Clean Catch Generic External Data Provider LAB URINE ORDERAB LES Final Result Performing Organization Address [facility] Co de Phone Number [facility] [address] [place] [phone] * CT Abdomen Pelvis w/ Contrast (12/09/2024 1:48 PM EDT) Anatomical Region Laterality Modality Body, Pelvis, Abdomen Computed T omography 12/09/2024 1:48 PM EDT Narrative 12/09/2024 2:46 PM EDT [address] [address] [address] Scan Report Signed Patient: Niranjan Pierson MR#: [id number] : 1960 Acct:[id number] Age/Sex: 64 / M ADM Date: 12/09/24 Loc: HO.ED Attending Dr: Ordering Physician: Gaby Mendoza Date of Service: 12/09/24 Procedure(s): CT abdomen pelvis w IV con Accession Number(s): [id number] cc: Gaby Mendoza; Bisi Kerr MD Report Number: [id number]: Total DLP = 437.00 mGy-cm Reason for [...] 12/09/24 1443 DD/ 1348 TD/TT: 12/09/24 1405 Ribbon Sweatband Operator: Procedure Note Donotuseinterpreter, Image - 12/09/[address] [address] [address] Scan Report Signed Patient: Renato Pierson#: M [id number] : 1960Acct:[id number] Age/Sex: 64 / MADM Date: 12/09/24 Loc: HO.ED Attending Dr: Ordering Physician: Gaby Mendoza Date of Service: 12/09/24 Procedure(s): CT abdomen pelvis w IV con Accession Number(s): [id number] cc: Gaby Mendoza; Bisi Kerr MD Report Number: [id number]: Total DLP = 437.00 mGy-cm Reason for [...] 12/09/24 1443 DD/ 1348 TD/TT: 12/09/24 1405 Ribbon Sweatband Operator: [facility] External Provider IMG CT PROCEDURES Edited Result - Final documented in this encounter Visit Diagnoses Not on filedocumented in this encounter Additional Health Concerns Assessment Noted Time PHQ-9 Depression Total Score: 0 09/05/19 25 1:17 PM EDT documented as of this encounter Care Teams Drying Oven Tender Relationship Specialty Start Date End Date Bisi Kerr MD [address] [place], [place] [phone] PCP - General Internal Medicine 07/07/22 Shad Baeza PharmD [address] [place] [address] Pharmacist Internal Medicine 06/07/23 documented as of this encounter
--- OUTSIDE RECORDS SUMMARY | 2024-12-09 16:59 | XMS_ITS | Encounter Summary ---
Author Organization [employer] Address 75 [facility] 7 [place] [address] Care Team Providers Care Wash Oil Cooler Operator Name Role Phone Bisi Kerr MD Primary Care Pro vider Shad Baeza PharmD Unavailable [phone] Encounter Details Date Type Department Care Team ([facility] st Contact Info) Description 12/09/2024 Results Follow-Up [facility] [address] [place] [address] Bisi Kerr MD [address] [place] [address] CT Abdomen Pelvis w/ Contrast Social History Tobacco Use Types Packs/Day Years [...] AM EDT documented as of this encounter Miscellaneous Notes * Result Encounter Note - Bisi Johnson MD - 12/09/2024 3:06 PM EDT Please call patient to advise to come to already scheduled apt with me Thanks documented in this encounter Plan of Treatment Upcoming Encounters Date Type Department Care Team (Late st Contact Info) Description 12/11/2024 2:30 PM EDT Office Visit [facility] [address] [place] [phone] Bisi Kerr MD [address] [place] [address] documented as of this encounter Visit Diagnoses Not on filedocumented in this encounter Additional Health Concerns Assessment Noted Time PHQ-9 Depression Total Score: 0 09/05/19 25 1:17 PM EDT documented as of this encounter Care Teams Wash Oil Cooler Operator Relationship Specialty Start Date End Date Bisi Kerr MD [address] [place], [place] [phone] PCP - General Internal Medicine 07/07/22 Shad Baeza PharmD [address] [place] [address] [phone] Pharmacist Internal Medicine 06/07/23 documented as of this encounter
--- OUTSIDE RECORDS SUMMARY | 2024-12-09 16:59 | XMS_ITS | Encounter Summary ---
Author Organization [employer] Address 75 [facility] 7t [place] [address] Care Team Providers Care Protein Specialist Name Role Phone Bisi Kerr MD Primary Care Pro vider Shad Baeza PharmD Unavailable [phone] Reason for Visit * Reason Comments Pre-visit Planning SDOH was already com pleted Encounter Details Date Type Department Care Team (Late st Contact Info) Description 12/04/2024 Patient Outreach [facility] [address] [place] [address] Bisi Kerr MD [address] [place] [address] Pre-visit Planning (SDOH was already completed ) Social History Tobacco Use Types Packs/Day [...] encounter Progress Notes * Blessing Tran - 12/04/2024 12:06 PM EDT CC Blessing Jones placed successful [...] Description 12/11/2024 2:30 PM EDT Office Visit [facility] [address] [place] [address] Bisi Kerr MD [address] [place] [address] documented as of this encounter Visit Diagnoses Not on filedocumented in this encounter Additional Health Concerns Assessment Noted Time PHQ-9 Depression Total Score: 0 09/05/19 25 1:17 PM EDT documented as of this encounter Care Teams Protein Specialist Relationship Specialty Start Date End Date Bisi Kerr MD [address] [place] [address] PCP - General Internal Medicine 07/07/22 Shad Baeza PharmD [address] [place] [address] Pharmacist Internal Medicine 06/07/23 documented as of this encounter
== END 2024-12-09 16:33 | disposition home or self-care (01) ==
PROVIDERS: Emergency Provider Emergency Medicine; PCP Student in an Organized Health Care Education/Training Program
DX: F11.23 Opioid dependence with withdrawal (principal); J18.9 Pneumonia, unspecified organism; R10.31 Right lower quadrant pain; Z03.818 Encounter for observation for suspected exposure to other biological agents ruled out; Z79.899 Other long term (current) drug therapy
CPT/HCPCS: 36415; 74177; 80053; 80307; 81003; 82248; 83690; 85025; 87502; 87635; 93005; 96365; 96375; 99284; 99285; J0696; J1171; J1200; J2405; J3360; J3475; Q9967; S9485

== ENCOUNTER → 2024-12-09 12:42 | Outpatient (BNV) | payer MEDICARE, MEDICAID, SELFPAY | PROVIDERS: Emergency Provider Emergency Medicine; PCP Student in an Organized Health Care Education/Training Program; Visit Provider Internal Medicine | DX: R10.9 Unspecified abdominal pain (principal) | CPT/HCPCS: 93010 ==

== ENCOUNTER → 2024-12-09 12:42 | Outpatient (BNV) | payer MEDICARE, MEDICAID, SELFPAY | PROVIDERS: PCP Student in an Organized Health Care Education/Training Program; Visit Provider Radiology Diagnostic Radiology | DX: R10.31 Right lower quadrant pain (principal) | CPT/HCPCS: 74177 ==

== ENCOUNTER → 2024-12-09 12:56 | Outpatient (BNV) | payer MEDICARE, MEDICAID, SELFPAY | PROVIDERS: PCP Student in an Organized Health Care Education/Training Program; Visit Provider Nurse Practitioner Psychiatric/Mental Health | DX: F11.99 Opioid use, unspecified with unspecified opioid-induced disorder (principal) | CPT/HCPCS: 99282 ==